=== PATIENT | male | born 1985 | race Caucasian/White ===

== ENCOUNTER 2017-09-07 17:30 | Observation (INO) | payer BC, MEDICAID, SELFPAY ==
[2017-09-07] VITALS (11 sets, daily range): BP systolic 155–192; BP diastolic 90–110; PULSE 85–115; RESP 12–18; TEMP 36.9–38.6; O2SAT 96–100; BMI 38.9; BMI 38.3
--- NOTE | 2017-09-07 17:50 | EKG12_ITS ---
Test Reason : PALPATATONS Blood Pressure : / mmHG Vent. Rate : 096 BPM Atrial Rate : 096 BPM P-R Int : 156 ms QRS Dur : 120 ms QT Int : 366 ms P-R-T Axes : 039 -31 022 degrees QTc Int : 462 ms Normal sinus rhythm Left axis deviation Left ventricular hypertrophy with QRS widening Abnormal ECG Confirmed by REESE SALAZAR, AUDREY ([id number]), graphics editor JASMIN ALEXANDER ([id number]) on 09/10/2017 1:32:00 PM Referred By: ANA Confirmed By:AUDREY LEIGH MD
[2017-09-07] MEDS: 0.9% Normal Saline 1,000 ML 1000 ML IV (18:03)
[2017-09-07 18:04] LABS: Absolute Neutrophil Count 9.4 X10^3/uL (2.0-7.7); Basophil# 0.02 X10^3/uL; Basophil% 0.2 % (0-1); Eosinophil# 0.11 X10^3/uL; Eosinophils% 0.9 % (0-5); Hematocrit 43.2 % (40-54); Hemoglobin 15.1 g/dl (13.0-16.5); Lymphocyte % 14.3 % (19-41); Mean Corpuscular Hgb 31.1 pg (27.0-32.0); Mean Corpuscular Volume 89.1 fL (80-94); Mean Platelet Vol. 9.7 fl (6.2-12.0); Monocyte# 1.19 X10^3/uL; Monocyte% 9.5 % (0-10); Neutrophil # 9.38 X10^3/uL (2.7-7.7); Neutrophil % 74.4 % (47-70); Platelet Count 321 K/mm3 (150-450); RBC Distribution Width CV 12.5 % (11.6-14.6); RBC Distribution Width SD 40.4 fl (35.1-43.9); Red Blood Count 4.85 M/mm3 (4.6-6.2); White Blood Count 12.6 K/mm3 (4.4-11.0)
[2017-09-07 18:05] LABS: POSITIVE COUNT NO; POSITIVE DIFFERENTIAL NO; POSITIVE MORPHOLOGY NO
--- NOTE | 2017-09-07 18:10 | RAD_ITS ---
STUDY: X-RAY CHEST REASON FOR EXAM: Male, 32 years old. Chest pain. TECHNIQUE: PA and lateral views of the chest. COMPARISON: None. FINDINGS: The lungs are clear and expanded. There is no demonstrated pleural abnormality. Normal size heart. Normal mediastinum and lavon. Normal visualized pulmonary arteries. Normal visualized aortic arch and descending thoracic aorta. There are minimal degenerative changes of the lower thoracic spine. Shallow, well corticated invaginations of the posterior inferior T9 and T10 vertebral endplates consistent with benign Schmorl's nodes. Normal visualized ribs, clavicles, and shoulders. There is no demonstrated abnormality of the visualized soft tissue structures of the upper abdomen. RAD/Chest PA and Lateral IMPRESSION: No acute cardiopulmonary disease. Electronically Signed: Tae Cooper MD at 18:48 EDT , Service support ,
[2017-09-07 18:14] LABS: D-Dimer Quantitative (DVT/PE) 0.27 FEU/ug/m (0.27-0.49)
[2017-09-07 18:33] LABS: Anion Gap 7 (5-15); BUN 12 mg/dL (7-18); BUN/Creat Ratio 12.6 RATIO (10-20); Calcium,Total 8.5 mg/dL (8.5-10.1); Chloride 100 mmol/L (98-107); Creatinine, Serum 0.96 mg/dL (0.70-1.30); EST Glomerular Filtration Rate 98 mL/min (>60); Est Glom Filt Rate - Afr Amer 119 mL/min (>60); Estimated Creatinine Clearance 119.84 ml/min; Glucose 82 mg/dL (74-106); Potassium 3.6 mmol/L (3.5-5.1); Sodium Level 135 mmol/L (136-145); Thyroid Stim Hormone (TSH) 3.97 uIU/mL (0.358-3.74)
--- NOTE | 2017-09-07 18:59 | ED.VISSUMM ---
- ER Visit Summary Date of Service: 09/07/17 Chief Complaint: Palpitations and dizziness History of Present Illness: The patient is a 32 M presenting for evaluation secondary to palpitations and dizziness. Patient states that today he had a sudden onset of feeling as if his heart was beating out of his chest and lightheadedness. Patient states that he felt as if he was going to pass out every time he stood up. He states it was associated with some nausea and shortness of breath and a generalized feeling of fatigue. Patient denies that there was any sort of chest pain associated with this. Patient does state that he had a cough last week and a mild upper respiratory infection that seems to have since basically resolved. He also reports that about a month ago he had a superficial soft tissue lesion removed from his abdomen that did not require any sort of general anesthesia. Denies any DVT or PE risk factors. Denies any prior similar symptoms. Patient states that he currently has a pending appointment for for workup of untreated hypertension. Physical Examination: Vital signs are within normal limits, patient is afebrile. General: Patient is well-nourished well-developed and in no acute distress. Head: Normocephalic, atraumatic Eyes: Pupils equal round and reactive bilaterally, extra occular motion intact bialterally ENT: Moist mucous membranes Neck: Supple, no lymphadenopathy, no JVD, no meningismus, normal thyroid to palpation CVS: Heart regular rate and rhythm, no murmurs, rubs or gallops, normal S1 and S2, radial pulses 2+ bilaterally Resp: Respirations nondistressed, lung sounds clear bilaterally Abdomen: Soft, nontender, nondistended, no palpable masses, normal bowel sounds Back: Nontender Extremities: Nontender, atraumatic, active full range of motion, no peripheral edema Skin: warm, no rashes, no petechia Neuro: Alert and oriented x 4, CN 2-12 intact, no lateralizing neurological defecits Psyc: Normal affect Test Results: EKG shows LVH with a sinus rate [address] segments normal T waves no evidence of right ventricular strain. LVH appears new from a prior EKG. Laboratory workup is unremarkable except for leukocytosis of 12 mildly elevated TSH and a indeterminate troponin of 0.06. D-dimer found to be negative. Emergency Department Course and Treatment: Patient presented secondary to dizziness palpitations in the setting of uncontrolled hypertension. He was worked up for possible cardiac abnormality versus blood clot versus thyroid. Workup as noted above ended up showing a indeterminate troponin. Patient was administered a liter normal saline and lisinopril in the ER but repeat evaluation showed that he was continuing to have these sensations. I believe that he requires observation admission at this point due to his indeterminate troponin, uncontrolled hypertension, and general risk factors. I discussed this with Dr. Trujillo Disposition: Admission Impression: 1. Presyncope 2. Elevated troponin 3. Hypertension This note was generated with [employer] dictation software. It may contain incorrect words, spelling, and punctuation that were not noted in review of the chart prior to signing ED Disposition - Plan for ED Patient: Chief Complaint: Palpitations Referrals: Care Physician,No Primary [Primary Care Provider] -
[2017-09-07] MEDS: Lisinopril 5 MG Tablet PO (19:06)
--- NOTE | 2017-09-07 19:20 | HP.PCM_ITS ---
History of Present Illness Date of Admission: 09/07/17 Chief Complaint: Dizziness, palpitation. The patient is a 32 year old M with no significant past medical history presented to the emergency room because of dizziness and palpitation. His symptoms started today with mainly dizziness and lightheadedness, constant, aggravated by standing up, associated with dizzy spells, headache and lightheadedness and without relieving factors. He mentioned he has been feeling that his heart is beating fast and strong since today morning. He denies syncope or presyncope. He reported mild chest pain which is described as discomfort or pressure, mild, intermittent, not radiating and associated with palpitation as well sometimes. His mentioned that lately, his blood pressure has been elevated. He had a lipoma surgery 1 month ago from his abdomen and at that time, his blood pressure was high as well. He mentioned that his blood pressure has been in the 160 systolic. In the emergency room, his initial blood pressure was 155/110 and second reading was 192/90. He was afebrile, tachycardic and pulse ox was 97%. His routine blood work was remarkable for mild leukocytosis, otherwise normal. Troponin was 0.06 which is at the cutoff range for normal level. His TSH was 3.97 which is slightly above reference range. Chest x-ray showed no acute findings. EKG revealed normal sinus rhythm with findings consistent with left axis deviation, no acute ischemic findings. He is being admitted for hypertensive urgency, palpitation and atypical chest pain/discomfort. Past Medical History Allergies shellfish derived Allergy (Verified 09/07/17 17:33) Unknown Home Medications: Ambulatory Orders Medication Instructions Recorded NK [NK] 09/07/17 Surgical History: tonsillectomy Psychiatric History: No pertinent psych hx Lives: Spouse/ Significant Other Smoking Status: Former smoker Alcohol: None Drugs: None - *Family History Maternal History Items: No pertinent history Paternal History Items: No pertinent history Review of Systems Constitutional: Denies: Anorexia, Chills, Fever, Weakness Eyes: Denies: Blurred vision, Double vision, Drainage, Redness HEENT: Denies: Difficulty Hearing, Ear Pain, Eye Pain, Nasal Congestion, Sore Throat Cardiovascular: Reports: Chest Pressure, Palpitations. Denies: Chest Pain, Heaviness, Light Headedness, Orthopnea, Paroxysmal Noc. Dyspnea, Syncope Respiratory: Reports: Shortness of Breath. Denies: Cough, Sputum production Gastrointestinal: Denies: Abdominal Pain, Constipation, Diarrhea, Nausea, Vomiting Genitourinary: Denies: Dysuria, Frequency Musculoskeletal: Denies: Arm Pain, Back Pain, Foot Pain Skin: Denies: Dryness, Rash Neurological: Denies: Balance problems, Blurred vision, Double vision, Change in Speech, Slurred speech, Focal weakness, Headaches Psychiatric: Reports: Anxiety. Denies: Depression Endocrine: Denies: Change in Body Habitus, Polydipsia VTE Information - Inpt Only VTE Present on Admission: No VTE Mechan Device Prophylaxis: None VTE Pharm Prophylaxis ordered?: No - Physical Exam General: Alert, Oriented x3, Cooperative, - - Anxious. HEENT: Atraumatic, PERRLA, EOMI Oral: Moist Mucosa, No Gingival or Mucosal Lesions/ Ulcerations Neck: Supple, No JVD, Negative Carotid Bruits, Trachea Midline, Thyroid Normal Size and Texture Lungs: Clear to auscultation, No rhonchi, No wheeze, No rales, Diminished Cardiovascular: Regular rate, Regular Rhythm, Normal S1, Normal S2, PMI Normal, Tachycardic Abdomen: Bowel Sounds Present, Soft, Non Tender, Non-Distended, No Hepato- splenomegaly Extremities: No clubbing, No cyanosis, No edema Skin: No rashes, No breakdown Lymphatic: No Cervical, Supraclavicular, or Inguinal Adenopathy Neurological: Cranial nerves II-XII grossly intact, Motor Exam 5/5 strength throughout Psych/Mental Status: Normal Affect, Anxious, Alert and oriented to time, place, person, mood and affect Vital Signs Temp Pulse Resp BP Pulse Ox 99.7 F H 95 12 184/104 H 99 09/07/17 17:30 09/07/17 19:06 09/07/17 19:06 09/07/17 19:06 09/07/17 19:06 Oxygen Delivery Method Room Air Laboratory Tests 3 09/07/17 09/07/17 09/07/17 Range/Units 17:45 17:45 17:45 WBC 12.6 H (4.4-11.0) K/mm3 RBC 4.85 (4.6-6.2) M/mm3 Hgb 15.1 (13.0-16.5) g/dl Hct 43.2 (40-54) % MCV 89.1 (80-94) fL MCH 31.1 (27.0-32.0) pg MCHC 35.0 (32-36) g/gl RDW 12.5 (11.6-14.6) % RDW Differential 40.4 (35.1-43.9) fl Plt Count 321 (150-450) K/mm3 MPV 9.7 (6.2-12.0) fl Immature Gran % (Auto) 0.700 (0.0-0.9) % Neut % (Auto) 74.4 H (47-70) % Lymph % (Auto) 14.3 L (19-41) % Rabun % (Auto) 9.5 (0-10) % Eos % (Auto) 0.9 (0-5) % Baso % (Auto) 0.2 (0-1) % Absolute Neuts (auto) 9.4 H (2.0-7.7) X10^3/uL Absolute Lymphs (auto) 1.80 (0.83-4.51) X10^3/ul Total Counted Not Reportable D-Dimer Quant (PE/DVT) 0.27 (0.27-0.49) FEU/ug/m Sodium 135 L (136-145) mmol/L Potassium 3.6 (3.5-5.1) mmol/L Chloride 100 (98-107) mmol/L Carbon Dioxide 28.0 (21.0-32.0) mmol/L Anion Gap 7 (5-15) BUN 12 (7-18) mg/dL Creatinine 0.96 (0.70-1.30) mg/dL Estim Creat Clear Calc 119.84 ml/min Est GFR (MDRD) Af Amer 119 (>60) mL/min Est GFR (MDRD) Non-Af 98 (>60) mL/min BUN/Creatinine Ratio 12.6 (10-20) RATIO Glucose 82 (74-106) mg/dL Calcium 8.5 (8.5-10.1) mg/dL Troponin I 0.06 (<0.06) ng/mL TSH 3.97 H (0.358-3.74) uIU/mL Clinical Impression(s) from Imaging Studies Chest X-Ray 09/07/17 18:10 IMPRESSION: No acute cardiopulmonary disease. Electronically Signed: Tae Cooper MD at 18:48 EDT , Service support , Assessment/Plan This is a 32 years old male patient presented to the emergency room because of dizziness, palpitation and atypical chest discomfort or pressure and he is being admitted for hypertensive urgency and atypical chest pain/pressure. #1 hypertensive urgency: Maximum blood pressure in the ER was 192/90, patient was tachycardic, heart rate has been around 100. EKG revealed normal sinus rhythm with left axis deviation, no acute ischemic changes. Patient and his mentioned that his blood pressure has been elevated lately over the last month. Has been in the 160 systolic. He never been on medication for hypertension. Plan: Admit to PCU for observation, cardiac monitoring, serial cardiac enzymes, repeat EKG tomorrow morning, start lisinopril/HCTZ, IV hydralazine as needed. #2 palpitation: Heart rate has been on 100, sinus rhythm. EKG without acute ischemic changes. Patient looks anxious and restless. He mentioned that his daughter has a major surgery recently and she has a follow-up tomorrow. Routine blood work was unremarkable. TSH was 3.97 which is slightly above the reference range. He denies any symptoms suggestive of hypothyroidism. Plan: Free and total T4, free T3. #3 atypical chest pain/pressure: Patient mentioned that he had very little chest discomfort and he was slightly short of breath. This is can be attributed to high blood pressure. He has no risk factors for CAD. He is not aware of any family history of premature CAD. EKG without acute ischemic changes. First troponin is 0.06 which is just above the Range for normal level. Plan: Serial cardiac enzymes, repeat EKG tomorrow morning, stress test tomorrow morning if cardiac enzymes are negative. #4 DVT prophylaxis: Low risk patient, no prophylaxis indicated. This note was generated with [employer] software. It may contain incorrect words, spelling, and punctuation that were not noted in checking the note before signing. Code Visit OBSV E&M: 05831 Initial observation care L3
[2017-09-07 21:52] LABS: Free T3 3.3 pg/mL (2.18-3.98); T4 Free Direct 0.87 ng/dL (0.76-1.46); T4 Total, Thyroxin 8.2 ug/dL (4.5-12.1)
[2017-09-07] MEDS: Acetaminophen 325 MG Tablet 650 MG PO (22:40)
[2017-09-07] MEDS: HYDROcodone Bitartrate/Apap 5/325 Tablet PO (23:23)
[2017-09-08] VITALS (8 sets, daily range): BP systolic 121–144; BP diastolic 67–100; PULSE 79–141; RESP 16–20; TEMP 36.6–37.3; O2SAT 94–97
[2017-09-08 02:39] LABS: Absolute Lymphocyte Count 2.94 X10^3/ul (0.83-4.51); Absolute Neutrophil Count 8.5 X10^3/uL (2.0-7.7); Basophil# 0.03 X10^3/uL; Basophil% 0.2 % (0-1); Differential Indicated SCAN CRITERIA MET; Eosinophil# 0.14 X10^3/uL; Hematocrit 43.3 % (40-54); Hemoglobin 15.1 g/dl (13.0-16.5); Lymphocyte # 2.94 X10^3/ul (4.0); Lymphocyte % 21.7 % (19-41); Mean Corp Hgb Conc 34.9 g/gl (32-36); Mean Corpuscular Hgb 31.1 pg (27.0-32.0); Mean Corpuscular Volume 89.3 fL (80-94); Mean Platelet Vol. 9.6 fl (6.2-12.0); Monocyte# 1.86 X10^3/uL; Monocyte% 13.7 % (0-10); Neutrophil # 8.49 X10^3/uL (2.7-7.7); Neutrophil % 62.9 % (47-70); POSITIVE COUNT NO; POSITIVE DIFFERENTIAL YES; POSITIVE MORPHOLOGY NO; Platelet Count 307 K/mm3 (150-450); RBC Distribution Width CV 12.7 % (11.6-14.6); RBC Distribution Width SD 40.9 fl (35.1-43.9); Red Blood Count 4.85 M/mm3 (4.6-6.2); White Blood Count 13.5 K/mm3 (4.4-11.0)
[2017-09-08 03:03] LABS: Anion Gap 9 (5-15); BUN 10 mg/dL (7-18); BUN/Creat Ratio 11.7 RATIO (10-20); Calcium,Total 8.3 mg/dL (8.5-10.1); Chloride 102 mmol/L (98-107); Cholesterol 159 mg/dL (200); Creatinine, Serum 0.86 mg/dL (0.70-1.30); EST Glomerular Filtration Rate 111 mL/min (>60); Est Glom Filt Rate - Afr Amer 135 mL/min (>60); Estimated Creatinine Clearance 133.77 ml/min; Glucose 100 mg/dL (74-106); High Density Lipoprotein 25 mg/dL; Potassium 3.4 mmol/L (3.5-5.1); Sodium Level 136 mmol/L (136-145); Triglycerides 513 mg/dL
[2017-09-08 04:57] LABS: International Normalized Ratio 1.2; Prothrombin Time (Protime)PT. 14.8 SECONDS (11.7-14.9)
[2017-09-08 04:58] LABS: Partial Thromboplast Time 29.8 Seconds (24.1-36.2)
[2017-09-08] MEDS: Lisinopril 20 MG Tablet PO (05:39)
--- NOTE | 2017-09-08 05:55 | EKG12_ITS ---
Test Reason : AM EKG Blood Pressure : / mmHG Vent. Rate : 090 BPM Atrial Rate : 090 BPM P-R Int : 158 ms QRS Dur : 122 ms QT Int : 386 ms P-R-T Axes : 048 -22 020 degrees QTc Int : 472 ms Normal sinus rhythm Left ventricular hypertrophy with QRS widening Abnormal ECG When compared with ECG of 21-SEP-2011 23:27, No significant change was found Confirmed by REESE SALAZAR, AUDREY ([id number]), publishing editor JASMIN ALEXANDER ([id number]) on 09/10/2017 1:37:22 PM Referred By: DR HASSAN Confirmed By:AUDREY LEIGH MD
[2017-09-08] MEDS: Ipratropium/Albuterol Sulfate 3 ML AMPUL.NEB INHALATION (05:59)
--- NOTE | 2017-09-08 09:14 | STRESSREP ---
Stress Test Report Pharmacologic myocardial perfusion stress test. 32-year-old man with a history of chest pain. Stress protocol: Resting EKG demonstrates normal sinus rhythm with a rate of 81 bpm normal intervals and noted resting blood pressure 732/84 mmHg. 0.4 mg of regadenoson was infused per usual protocol followed by rapid intravenous saline flush injection. Continuous EKG monitoring was performed. The patient maintained sinus rhythm throughout the recording. At rest there were no ST or T-wave changes noted suggest abnormal flow reserve at peak infusion no ST or T-wave changes were noted suggest abnormal flow reserve. The maximum heart rate attained was 111 bpm which was 58% maximum predicted heart rate. Myocardial perfusion protocol. 14.8 mCi of technetium 99m sestamibi was injected at rest. 0.4 mg regadenoson was infused per usual protocol. Peak infusion 44.8 mCi of technetium 99m sestamibi was injected. Stress images were obtained stress and rest images were reconstructed and compared in the short axis vertical long and horizontal long axis. Gated images were also obtained. Perfusion SPECT analysis: Review of the stress images demonstrate normal uptake of tracer noted in all areas of the myocardium. The resting images similarly demonstrate normal uptake of tracer noted in all areas of the myocardium. No areas of reversibility are noted suggest ischemia no previous infarct is noted. Gated SPECT analysis: The gated ejection fraction is noted be 55%. Conclusion: Normal pharmacologic myocardial perfusion stress test. Preserved ejection fraction.
[2017-09-08] MEDS: HYDROCHLOROTHIAZIDE 12.5 MG CAPSULE PO (10:37)
--- NOTE | 2017-09-08 11:01 | PCM.DC ---
You will use the following diet at home:: Cardiac Your food should be the consistency of: Regular Allergies/Adverse Reactions: Allergies shellfish derived Allergy (Verified 09/07/17 17:33) Unknown imitation crab meat Allergy (Uncoded 09/07/17 19:38) throat swelling Medications to take at Discharge Atorvastatin Calcium [Lipitor] 40 mg PO QHS #90 tab 09/08/17 Hydrochlorothiazide 12.5 mg PO DAILY #90 cap 09/08/17 Lisinopril [Zestril] 20 mg PO DAILY #90 tab 09/08/17 The following prescriptions were given: Atorvastatin Calcium [Lipitor] 40 mg PO QHS #90 tab Hydrochlorothiazide 12.5 mg PO DAILY #90 cap Lisinopril [Zestril] 20 mg PO DAILY #90 tab Primary Care Physician: Care Physician,No Primary [Primary Care Provider] - Please follow up with your Primary Care Physician in: in 1-2 weeks Proposed Discharge Date: 09/08/17
--- NOTE | 2017-09-08 11:05 | PCM.DC.SUM ---
Discharge Date and Diagnosis - Problem List Patient Problems: Active and Suspected Problems High triglycerides (Acute) Hypertensive crisis (Acute) Date of Admission: 09/07/17 Date of Discharge: 09/08/17 - Primary Discharge Diagnosis Active and Suspected Problems High triglycerides (Acute) Hypertensive crisis (Acute) - Secondary Discharge Diagnosis Chronic Problems Obesity (BMI 35.0-39.9 without comorbidity) (Chronic) Hospital Course and Treatment Imaging Results: 09/08/17 05:55 Nuclear Stress Test - Chemical [NM] AM (NON MEDS) Clinical Impression(s) from Imaging Studies Chest X-Ray 09/07/17 18:10 IMPRESSION: No acute cardiopulmonary disease. Electronically Signed: Tae Cooper MD at 18:48 EDT , Service support , Summary of Care Provided: The patient is a 32 year old M with good health who presented with palpitations and dizziness patient was found to have markedly elevated blood pressure admitted to monitored bed for further management 1. Acute hypertensive crisis: Patient admitted to a monitored bed. Patient was placed on lisinopril and HCTZ with improvement in his blood pressure prescription was written on discharge 2. Atypical chest pain placed on a monitored bed as stated above did rule out ID with serial cardiac enzymes underwent a nuclear stress test which is negative for stress-induced ischemia 3. Morbid obesity with BMI of 38.4 weight loss advised 4. Hypertriglyceridemia patient was discharged on statins Discharge Diet: Low fat/ Low Cholesterol Home Medications: Medications to take at Discharge Atorvastatin Calcium [Lipitor] 40 mg PO QHS #90 tab 09/08/17 Hydrochlorothiazide 12.5 mg PO DAILY #90 cap 09/08/17 Lisinopril [Zestril] 20 mg PO DAILY #90 tab 09/08/17 Following Prescrptions Were Given to Patient: Atorvastatin Calcium [Lipitor] 40 mg PO QHS #90 tab Hydrochlorothiazide 12.5 mg PO DAILY #90 cap Lisinopril [Zestril] 20 mg PO DAILY #90 tab Primary Care Physician: Care Physician,No Primary [Primary Care Provider] - Please follow up with your Primary Care Physician in: in 1-2 weeks Disposition: Home Minutes spent on discharge:: 35 Patient Condition:: Stable Meaningful Use Info Meaningful Use Diagnoses (Choose all that apply): None applicable Code Visit OBSV E&M: 94716 Observation care discharge
--- NOTE | 2017-09-08 11:05 | CASEMGMT ---
RN CM given referral by Dr. Medina to assist patient with obtaining PCP. RN CM gave patient a list of area providers, and explained to check in-network provider. RN CM told patient to call to establish with preferred provider. Patient verbalizes understanding and gratitude for list. Hussain Ruiz BSN, RN-BC, CCM
== END 2017-09-08 11:02 | disposition home or self-care (01) ==
LOC: ED 18:10 → PCU 19:07
PROVIDERS: Admitting Provider Hospitalist; Emergency Provider Emergency Medicine; Visit Provider Internal Medicine
DX: I16.9 Hypertensive crisis, unspecified (principal); E66.01 Morbid (severe) obesity due to excess calories; Z68.38 Body mass index [BMI] 38.0-38.9, adult; Z71.3 Dietary counseling and surveillance; R07.89 Other chest pain; E78.1 Pure hyperglyceridemia; R55 Syncope and collapse; Z87.891 Personal history of nicotine dependence; I10 Essential (primary) hypertension
CPT/HCPCS: 36415; 71046; 78452; 80048; 80061; 84436; 84439; 84443; 84481; 84484; 85025; 85379; 85610; 85730; 93005; 93017; 94640; 96361; 96374; 99218; 99285; A9500; J7030; A4216; G0378; J2785

== ENCOUNTER 2018-01-19 09:13 | Emergency (ER) | payer BC, MEDICAID, SELFPAY ==
[2018-01-19 09:14] VITALS: BP 159/84; PULSE 103; RESP 16; TEMP 36.8; O2SAT 97; BMI 34.2
--- NOTE | 2018-01-19 09:45 | CT_ITS ---
STUDY: CT ABDOMEN AND PELVIS WITHOUT CONTRAST REASON FOR EXAM: Male, 32 years old. Back pain, nausea and vomiting RADIATION DOSAGE (If Supplied By Facility): CTDIvol = ( 14.75 ) mGy, DLP = ( 789.77 ) mGycm TECHNIQUE: Transaxial images were obtained from the dome of the diaphragm to the symphysis pubis without oral contrast, and without intravenous contrast. Sagittal and coronal images were reconstructed. Individualized dose optimization techniques were used for this CT. COMPARISON: None. FINDINGS: The visualized lung bases are unremarkable. The visualized portions of the heart are within normal limits. Normal liver. Normal gallbladder and extrahepatic biliary system. Normal spleen. Normal pancreas. Normal bilateral adrenal glands. Normal right kidney. Normal left kidney. Normal visualized stomach. Normal small intestine. Normal colon. There is non-visualization of the appendix. Normal abdominal aorta. Normal inferior vena cava. Normal retroperitoneum. Normal urinary bladder. There is a right-sided inguinal hernia containing adipose tissue. Normal osseous structures. CT/Abdomen/Pelvis without Cont IMPRESSION: No suspicious solid organ abnormality No CT evidence of an acute inflammatory process No free intraperitoneal fluid, air, or suspicious adenopathy Electronically Signed: Tae Santa MD at 10:38 EDT , Service support ,
--- NOTE | 2018-01-19 09:48 | ED.DCSUM_ITS ---
- ER Visit Summary Date of Service: 01/19/18 Chief Complaint: [Abdominal pain] History of Present Illness: The patient is a 32 M [since the emergency department with abdominal pain. He woke up with it this morning. It is in the left flank. He has had associated nausea and vomiting 2 episodes. He has had 4 episodes of watery stool. No urinary symptoms. He feels generally weak and ill. No fevers or chills. No other medical problems.] Physical Examination: [] WN WD NAD PERRL EOMI MMM NECK supple and nontender, no masses RRR no murmur rub or gallop, no peripheral edema, symmetric radial pulses CTAB no respiratory distress ABDOMEN is soft he has tender Barrow in the left mid abdomen, normal bowel sounds , no distension, no rebound or guarding No CVA tenderness SKIN is warm and dry no rashes Alert and Oriented x3, CN II-XII in tact, no motor or sensory deficits, gait normal No lymphadenopathy Test Results: [] Emergency Department Course and Treatment: [Patient was improved with Phenergan and morphine. He still had some left mid abdominal pain. CT of abdomen pelvis was unremarkable. T bili was 2.2. He did have a mild leukocytosis at 12. I did reevaluate him he has no right upper quadrant pain. Biliary tract and gallbladder system appear normal by CT. This time I am not sure why he has an elevated total bilirubin. I do think she can be discharged home. I gave him careful precautions for which to return including worsening pain and inability to tolerate p.o. or fever of 101 or higher. He will be given Bentyl and Phenergan at home.] Treatment Plan: [] Disposition: [Discharge] Impression: [1. Left mid abdominal pain 2. Nausea vomiting diarrhea] This note was generated with [employer] dictation software. It may contain incorrect words, spelling, and punctuation that were not noted in review of the chart prior to signing ED Disposition - Plan for ED Patient: Chief Complaint: Nausea/Vomiting/Diarrhea Referrals: Brandon Lovett PA [Primary Care Provider] -
[2018-01-19] MEDS: proMETHazine 25 MG/ML Syringe 12.5 MG IV (10:01)
[2018-01-19] MEDS: 0.9% Normal Saline 1,000 ML 1000 ML IV (10:01)
[2018-01-19] MEDS: Morphine 4 MG/ML Syringe IV (10:01)
[2018-01-19 10:10] LABS: Bacteria 0 SEEN /hpf (None Seen); Mucous, Urine 0 SEEN /hpf (<or=2+); Red Blood Cells-Urine 0 SEEN /hpf (0-5); Squamous Epithelial Cells - UA 0 SEEN /hpf (0-5); White Blood Cells 0 SEEN /hpf (0-5)
[2018-01-19 10:16] LABS: Color, Urine Yellow (Yellow); Glucose, Dipstick Normal (Normal); Ketone-Dipstick Negative (Negative); Leukocyte Esterase-Dipstick Negative /ul (Negative); Nitrite-Dipstick Negative (Negative); Occult Blood-Urine 10 /ul (Negative); Protein-Dipstick Negative (Negative); Specific Gravity, Urine 1.005 (1.002-1.030); Urine Bilirubin Dipstick Negative (Negative); Urine Clarity Clear (Clear); Urine Urobilinogen Normal (Normal); Urine pH 6.5 (5.0 - 8.0)
[2018-01-19 10:18] LABS: Absolute Lymphocyte Count 1.53 X10^3/ul (0.83-4.51); Absolute Neutrophil Count 8.9 X10^3/uL (2.0-7.7); Basophil# 0.03 X10^3/uL; Basophil% 0.3 % (0-1); Eosinophil# 0.12 X10^3/uL; Hematocrit 43.5 % (40-54); Hemoglobin 15.1 g/dl (13.0-16.5); Lymphocyte # 1.53 X10^3/ul (4.0); Lymphocyte % 12.8 % (19-41); Mean Corp Hgb Conc 34.7 g/gl (32-36); Mean Corpuscular Hgb 31.3 pg (27.0-32.0); Mean Corpuscular Volume 90.2 fL (80-94); Mean Platelet Vol. 9.7 fl (6.2-12.0); Monocyte% 11.7 % (0-10); Neutrophil # 8.86 X10^3/uL (2.7-7.7); Neutrophil % 73.9 % (47-70); Platelet Count 322 K/mm3 (150-450); RBC Distribution Width CV 12.5 % (11.6-14.6); RBC Distribution Width SD 40.9 fl (35.1-43.9); Red Blood Count 4.82 M/mm3 (4.6-6.2)
[2018-01-19 10:19] LABS: POSITIVE COUNT NO; POSITIVE DIFFERENTIAL NO; POSITIVE MORPHOLOGY NO
[2018-01-19 10:27] LABS: AST(SGOT) 19 U/L (15-37); Alanine Aminotransfer ALT/SGPT 42 U/L (16-61); Albumin, Serum 4.2 g/dL (3.2-5.0); Alkaline Phosphatase 55 U/L (45-117); Anion Gap 6 (5-15); BUN 16 mg/dL (7-18); BUN/Creat Ratio 15.8 RATIO (10-20); Calcium,Total 9.2 mg/dL (8.5-10.1); Chloride 103 mmol/L (98-107); Creatinine, Serum 1.01 mg/dL (0.70-1.30); EST Glomerular Filtration Rate 92 mL/min (>60); Est Glom Filt Rate - Afr Amer 111 mL/min (>60); Globulin 4.1 g/dL (2.2-4.2); Glucose 75 mg/dL (74-106); Lipase 102 U/L (73-393); Protein, Total 8.3 g/dL (6.4-8.2); Sodium Level 138 mmol/L (136-145)
--- NOTE | 2018-01-19 11:05 | ED.DEP ---
ED Disposition - Plan for ED Patient: Chief Complaint: Nausea/Vomiting/Diarrhea Instructions: ED Vomiting Diarrhea Nonspecific Ad, ED Abdominal Pain Unkn Cause Prescriptions: Ondansetron [Zofran Odt] 4 mg PO Q8H PRN PRN #10 tablet PRN Reason: Nausea Dicyclomine HCl [Bentyl] 20 mg PO TIDAC PRN #20 capsule PRN Reason: Pain Referrals: Brandon Lovett PA [Primary Care Provider] - 2 Days
[2018-01-19 11:17] VITALS: BP 122/68; PULSE 81; RESP 18; O2SAT 99
--- NOTE | 2018-01-19 11:17 | ED.RN ---
advised pt he had to find a ride to be able to go home. pt was in process of calling family to try to find a ride.
--- NOTE | 2018-01-19 12:16 | ED.RN ---
WENT BACK INTO ROOM TO SEE IF PT HAD FOUND A RIDE, AND PT AND BELONGINGS WERE GONE.
== END 2018-01-19 12:17 | disposition home or self-care (01) ==
PROVIDERS: Emergency Provider Emergency Medicine; Family Provider Physician Assistant; PCP Physician Assistant
DX: R10.9 Unspecified abdominal pain (principal); R11.2 Nausea with vomiting, unspecified; R19.7 Diarrhea, unspecified; Z79.899 Other long term (current) drug therapy
CPT/HCPCS: 74176; 80053; 81001; 83690; 85025; 96361; 96374; 96375; 99283; A4216

== ENCOUNTER 2018-03-28 11:54 | Emergency (ER) | payer BC, MEDICAID, SELFPAY ==
[2018-03-28 11:56] VITALS: BP 128/86; PULSE 66; RESP 18; TEMP 36.4; O2SAT 100; BMI 34.9
[2018-03-28 11:59] VITALS: BP 128/86; PULSE 66; RESP 18; O2SAT 100
--- NOTE | 2018-03-28 12:03 | EKG12_ITS ---
Test Reason : DIZZINESS Blood Pressure : / mmHG Vent. Rate : 066 BPM Atrial Rate : 066 BPM P-R Int : 180 ms QRS Dur : 128 ms QT Int : 400 ms P-R-T Axes : 053 000 036 degrees QTc Int : 419 ms Normal sinus rhythm Non-specific intra-ventricular conduction block Abnormal ECG Confirmed by REESE SALAZAR, AUDREY ([id number]), editor city JASMIN ALEXANDER ([id number]) on 04/04/2018 3:21:29 PM Referred By: SAUNDRA
--- NOTE | 2018-03-28 12:07 | ED.DCSUM_ITS ---
- ER Visit Summary Date of Service: 03/28/18 Chief Complaint: Dizziness and lightheadedness History of Present Illness: The patient is a 32 M who was at work today and felt dizzy and lightheaded. He states my head was spinning. He denies any chest pain or headache. He does feel nauseous and did vomit on the way N. This happened one episode previously and had a negative stress test after he was admitted for this. He states that the last time when he would sit down it would feel better but now any position does not make it better. Physical Examination: Vital signs reviewed. HEENT exam unremarkable. He does have bilateral nystagmus on eye movement. Heart is regular rate and rhythm without murmurs. Lungs are clear to auscultation. Abdomen is soft and nontender. Extremities reveal no edema. Skin exam normal. Neurologic exam normal. Test Results: EKG is normal sinus rhythm with a rate of 66. No ST changes. Chest x-ray normal. Laboratory studies are normal. Troponin is 0.022 Emergency Department Course and Treatment: Patient was treated with saline, Antivert and Zofran. He states he felt a little bit better but not back to baseline. He was then given oral Valium and feels better. I feel this is likely secondary to vertigo. He had a normal stress test earlier this year. I do not feel that this is cardiac. Patient will be treated with Antivert at home. He will increase hydration and will follow up with his primary care physician. Treatment Plan: [] Disposition: Discharge Impression: Vertigo This note was generated with [employer] dictation software. It may contain incorrect words, spelling, and punctuation that were not noted in review of the chart prior to signing ED Disposition - Plan for ED Patient: Chief Complaint: Dizziness Referrals: Brandon Lovett PA [Primary Care Provider] -
[2018-03-28] MEDS: Ondansetron 4 MG/2 ML Vial IV (12:18)
[2018-03-28] MEDS: 0.9% Normal Saline 1,000 ML 1000 ML IV (12:18)
[2018-03-28] MEDS: Aspirin 81 MG TAB.CHEW 324 MG PO (12:19)
[2018-03-28] MEDS: Meclizine HCl 25 MG Tablet PO (12:19)
[2018-03-28 12:21] VITALS: O2SAT 99
--- NOTE | 2018-03-28 12:22 | RAD_ITS ---
STUDY: X-RAY CHEST REASON FOR EXAM: Male, 32 years old. Chest pain, dizziness and diaphoresis. Shortness of breath. TECHNIQUE: Single AP portable view of the chest. COMPARISON: Comparison is made with prior study dated September 07, 2017. FINDINGS: EKG electrodes are seen. The lungs are clear and expanded. Scattered calcified granulomas. There is no demonstrated pleural abnormality. Normal size heart. Normal mediastinum and lavon. Normal visualized pulmonary arteries. Normal visualized aortic arch and descending thoracic aorta. There are degenerative changes of the visualized thoracic spine. Normal visualized ribs, clavicles, and shoulders. There is no demonstrated abnormality of the visualized soft tissue structures of the upper abdomen. RAD/Chest 1 View (Portable) IMPRESSION: No acute abnormality is seen. Electronically Signed: Gaurav Lau MD at 12:44 EDT Tel [phone], Service support ,
[2018-03-28 12:35] LABS: Absolute Lymphocyte Count 2.74 X10^3/ul (0.83-4.51); Absolute Neutrophil Count 6.2 X10^3/uL (2.0-7.7); Basophil# 0.03 X10^3/uL; Basophil% 0.3 % (0-1); Hematocrit 42.6 % (40-54); Hemoglobin 14.6 g/dl (13.0-16.5); Lymphocyte # 2.74 X10^3/ul (4.0); Lymphocyte % 27.1 % (19-41); Mean Corp Hgb Conc 34.3 g/gl (32-36); Mean Corpuscular Hgb 30.4 pg (27.0-32.0); Mean Corpuscular Volume 88.8 fL (80-94); Mean Platelet Vol. 9.8 fl (6.2-12.0); Monocyte# 1.08 X10^3/uL; Monocyte% 10.7 % (0-10); Neutrophil # 6.16 X10^3/uL (2.7-7.7); Neutrophil % 60.8 % (47-70); Platelet Count 311 K/mm3 (150-450); RBC Distribution Width CV 12.3 % (11.6-14.6); RBC Distribution Width SD 39.4 fl (35.1-43.9); White Blood Count 10.1 K/mm3 (4.4-11.0)
[2018-03-28 12:36] LABS: POSITIVE COUNT NO; POSITIVE DIFFERENTIAL NO; POSITIVE MORPHOLOGY NO
--- NOTE | 2018-03-28 12:36 | ED.RN ---
WHILE IN PATIENT ROOM PATIENT HEART RATE DROPPED TO MID 40'S PATIENT COMPLAINED OF WORSENING DIZZINESS. DR. CRUZ NOTIFIED.
[2018-03-28 12:59] LABS: Anion Gap 10 (5-15); BUN 21 mg/dL (7-18); BUN/Creat Ratio 21.3 RATIO (10-20); Calcium,Total 9.5 mg/dL (8.5-10.1); Chloride 103 mmol/L (98-107); Creatinine, Serum 0.98 mg/dL (0.70-1.30); EST Glomerular Filtration Rate 95 mL/min (>60); Est Glom Filt Rate - Afr Amer 114 mL/min (>60); Estimated Creatinine Clearance 117.39 ml/min; Glucose 99 mg/dL (74-106); Potassium 3.5 mmol/L (3.5-5.1); Sodium Level 136 mmol/L (136-145)
[2018-03-28] MEDS: diazePAM 5 MG Tablet 2.5 MG PO (13:56)
[2018-03-28 13:59] VITALS: BP 138/86; PULSE 76; RESP 14; O2SAT 97
--- NOTE | 2018-03-28 14:19 | ED.DEP ---
ED Disposition - Plan for ED Patient: Disposition: Home or Assisted Living Chief Complaint: Dizziness Instructions: ED BPV Vertigo Prescriptions: Meclizine HCl [Antivert] 25 mg PO 4X/DAY PRN PRN #20 tab PRN Reason: Dizziness Referrals: Brandon Lovett PA [Primary Care Provider] -
[2018-03-28 14:27] VITALS: BP 130/85; PULSE 60; RESP 16; O2SAT 98
== END 2018-03-28 14:38 | disposition home or self-care (01) ==
PROVIDERS: Emergency Provider Emergency Medicine; Family Provider Physician Assistant; PCP Physician Assistant
DX: R42 Dizziness and giddiness (principal); R11.2 Nausea with vomiting, unspecified; I10 Essential (primary) hypertension; Z79.899 Other long term (current) drug therapy
CPT/HCPCS: 71045; 80048; 84484; 85025; 93005; 96361; 96374; 99284; J7030; J2405

== ENCOUNTER 2023-04-27 16:00 | Emergency (ER) | payer MEDICAID, SELFPAY ==
[2023-04-27 16:03] VITALS: BP 177/108; PULSE 85; RESP 18; TEMP 37; O2SAT 99; BMI 36.4
--- NOTE | 2023-04-27 16:26 | EX.ED.DYSGE1 ---
HPI History of Present Illness Chief Complaint: Allergic Reaction Narrative Narrative: 37-year-old male presenting for concern of allergic reaction. Patient states the only allergy he knows that he has is what he believes is a shellfish allergy. He states he was previously told this because he ate some imitation crab meat and had an allergic reaction. He states that he can eat in small amounts but if he eats a whole pack of imitation crab meat he will then get an allergic reaction which she describes as throat closure. Last night he states that he was making pork chops with a new version of a shake and bake type of food for his pork chops and states that this caused him to feel acutely short of breath. He states that he did not have a rash. He states that his 1 came home and given an EpiPen and this helped. He did not come to the ER last night because he had to stay home with the children's and back to work. He states he still has some throat tightness and feels like he has a grapefruit in his throat. Patient states that he is not having trouble swallowing or tolerating secretions. He has not had any rashes. Denies abdominal pain. No fevers or chills. [facility] Medical History Allergies Home Medications atorvastatin 40 mg tablet 40 mg PO QHS #90 tabs 09/08/17 [Rx Last Taken Unknown] hydrochlorothiazide 12.5 mg capsule 12.5 mg PO DAILY #90 caps 09/08/17 [Rx Last Taken Unknown] lisinopril 20 mg tablet 20 mg PO DAILY #90 tabs 09/08/17 [Rx Last Taken Unknown] meclizine 25 mg tablet 25 mg PO 4X/DAY PRN PRN Dizziness #20 tabs 03/28/18 [Rx Last Taken Unknown] diphenhydramine HCl 25 mg capsule (Benadryl) 25 mg PO TID PRN allergic reaction #20 caps 04/27/23 [Rx Last Taken Unknown] epinephrine 0.3 mg/0.3 mL injection, auto-injector (EpiPen 2-[place]) 0.3 mg (0.3 mL) IM Q4H PRN anaphylaxis #2 ea 04/27/23 [Rx Last Taken Unknown] prednisone 10 mg tablet 10 mg PO DAILY #14 tabs 04/27/23 [Rx Last Taken Unknown] Allergy/AdvReac Type Severity Reaction Status Date / Time crab Allergy Other Verified 04/27/23 16:03 shellfish derived Allergy Unknown Verified 04/27/23 16:03 Social History Smoking Status: Never smoker ROS ROS ED Constitutional Constitutional ED: Denies chills, fever(s) or sweats Eyes Eyes: Denies blurry vision or change in vision ENT ENT ED: Reports sore throat and other Details: Throat tightness ; Denies ear pain Cardiovascular Cardiovascular: Denies chest pain, palpitations or racing heartbeat Respiratory/Chest Respiratory/Chest: Reports dyspnea; Denies cough or sputum Gastrointestinal Gastrointestinal: Denies abdominal pain, constipation, diarrhea, nausea or vomiting Genitourinary Genitourinary ED: Denies dysuria, hematuria or urinary frequency Musculoskeletal Musculoskeletal: Denies arthralgias, myalgias or neck pain Integumentary Denies abscess, Abrasions or rash Neurologic Neurologic: Denies headache(s), paresthesias or weakness Psychiatric Psychiatric: Denies anxiety, depression, suicidal ideation or suicidal thoughts Endocrine Endocrinology: Denies polydipsia or polyuria EXAM Physical Exam Const Vital Signs: 04/27/23 16:03 Temperature 98.6 F Temperature Source Temporal Pulse Rate 85 Respiratory Rate 18 Blood Pressure 177/108 H Blood Pressure Mean 131 Pulse Ox 99 Oxygen Delivery Method Room Air Positive well nourished General Appearance ED: NAD; Negative for pallor HEENT Reports moist mucous membranes Eyes PERRL and EOMs intact bilaterally Neck no lymphadenopathy Neck Narrative: No stridor Chest Wall inspection of chest normal Resp normal respiratory effort and clear to auscultation bilaterally Auscultation: Negative for rales, rhonchi or wheezes Cardio regular rate and regular rhythm GI normal to inspection, nondistended, normoactive bowel sounds Back/Spine no CVA tenderness Extremity normal to inspection General Extremety ED: Negative for edema or tenderness General Extremity: Negative for edema Neuro CN's II-XII intact bilaterally Sensorium / Orientation: alert Psych mental status grossly normal Skin no rashes or lesions noted and no wounds General Skin Exam: elasticity normal; Negative for jaundice or pallor MDM MDM MDM Narrative Medical decision making narrative: 37-year-old male presenting with concern for allergic reaction. Is not anaphylaxis. No stridor on exam. Lungs are clear to auscultation. Patient was given Benadryl, Pepcid, Solu-Medrol and feels much better on reexamination at 1650. Patient is monitored until 1800 and feels a lot better at this point. I obtained a soft tissue neck x-ray on my interpretation this shows no acute process. Patient be given a prednisone taper, EpiPen, Benadryl for home. Return precautions were discussed. Impression: 1. Allergic reaction Lab Data Attestation: I reviewed the patient's lab results. Radiography Diagnostic Testing: Clinical Impression(s) from Imaging Studies Soft Tissue Neck X-Ray 04/27/23 16:50 IMPRESSION: Normal x-ray soft tissue neck. Electronically Signed: Efraín Pollard MD at 17:20 EDT , Discharge Plan Triage Chief Complaint: Allergic Reaction ED Provider: Santiago Puente Dx/Rx/DC Orders Instructions: ED General Allergic Reactions Prescriptions: New epinephrine [EpiPen 2-[place]] 0.3 mg/0.3 mL auto-injector 0.3 mg IM Q4H PRN (Reason: anaphylaxis) Qty: 2 0RF prednisone 10 mg tablet 10 mg PO DAILY Qty: 14 0RF Rx Instructions: 4 tabs p.o. x2 days, then 2 tabs p.o. x2 days, then 1 tab p.o. x2 days diphenhydramine HCl [Benadryl] 25 mg capsule 25 mg PO TID PRN (Reason: allergic reaction) Qty: 20 0RF No Action lisinopril 20 MG tablet 20 mg PO DAILY Qty: 90 0RF hydrochlorothiazide 12.5 MG capsule 12.5 mg PO DAILY Qty: 90 0RF atorvastatin 40 MG tablet 40 mg PO QHS Qty: 90 0RF meclizine 25 MG tablet 25 mg PO 4X/DAY PRN PRN (Reason: Dizziness) Qty: 20 0RF Primary Care Provider: Brandon Lovett Referrals: Brandon Lovett PA [Primary Care Provider] - Disposition Disposition: Home, Self Care
[2023-04-27] MEDS: Famotidine 200 MG/20 ML MDV 20 MG in 0.9% Normal Saline (Pres. free 8 ML 300 MG IV (16:41)
[2023-04-27] MEDS: MethylPREDNISolone 125 MG/2 ML Vial IV (16:42)
[2023-04-27] MEDS: DiphenhydrAMINE 50 MG/ML Syringe 25 MG IV (16:42)
--- NOTE | 2023-04-27 16:50 | RAD_ITS ---
STUDY: X-RAY - SOFT TISSUE NECK REASON FOR EXAM: Male, 37 years old. throat tightness TECHNIQUE: 2 view(s) of the neck were obtained. COMPARISON: None. FINDINGS: Normal visualized nasopharynx, oropharynx, hypopharynx. Normal epiglottis. Normal visualized subglottic tracheal air column. Normal prevertebral soft tissue structures. Normal visualized osseous structures. The soft tissue structures are unremarkable. RAD/Neck for Soft Tissue IMPRESSION: Normal x-ray soft tissue neck. Electronically Signed: Efraín Pollard MD at 17:20 EDT ,
[2023-04-27 18:21] VITALS: BP 166/99; PULSE 82; RESP 18; O2SAT 98
== END 2023-04-27 18:22 | disposition home or self-care (01) ==
PROVIDERS: Emergency Provider Student in an Organized Health Care Education/Training Program; PCP Physician Assistant; Visit Provider Student in an Organized Health Care Education/Training Program
DX: T78.40XA Allergy, unspecified, initial encounter (principal); X58.XXXA Exposure to other specified factors, initial encounter
CPT/HCPCS: 70360; 96365; 96366; 96375; 99283; A4216; J3490

== ENCOUNTER 2023-05-07 06:49 | Emergency (ER) | payer OTHER, SELFPAY ==
--- NOTE | 2023-05-07 06:51 | RAD_ITS ---
INDICATION: injury EXAMINATION/TECHNIQUE: X-RAY - LEFT XR Foot Min 3 Views 3 VIEWS COMPARISON: No relevant prior comparison study available FINDINGS: SOFT TISSUES: Subcutaneous soft tissue swelling at the dorsal aspect of the foot suggesting hematoma. No radiopaque foreign body. BONES/JOINTS: No acute fracture or subluxation.. Normal alignment. Preservation of the joint space.. No sclerotic or destructive changes observed. RAD/Foot min 3 Views IMPRESSION: Subcutaneous soft tissue swelling at the dorsal aspect of the foot suggesting hematoma. There is no evidence of fracture. Electronically Signed: Devan Hernandez MD at 8:05 EST ,
[2023-05-07 06:52] VITALS: BP 165/98; PULSE 85; RESP 18; TEMP 36.6; O2SAT 98; BMI 37.0
--- NOTE | 2023-05-07 07:26 | ED.VIS.LOWEX ---
HPI History of Present Illness Chief Complaint: Lower Extremity Injury Informant: patient Narrative Narrative: Patient presents just after a work-related injury. He states a very heavy piece of steel fell onto his left midfoot dorsally, proximal to the steel toe and the boots that he was wearing at the time. States it is severe pain, he cannot put any weight on it since the injury. He describes this big plate of steel as half inch-1 inch thick or so, 4 foot x 2 foot. When asked how much he weighs, he states probably somewhere between 50 and 100 pounds. [facility] Medical History Allergies Hypertension Home Medications epinephrine 0.3 mg/0.3 mL injection, auto-injector (EpiPen 2-[place]) 0.3 mg (0.3 mL) IM Q4H PRN anaphylaxis #2 ea 04/27/23 [Rx Last Taken Unknown] amlodipine 10 mg tablet 10 mg PO DAILY 05/07/23 [History Last Taken Unknown] oxycodone-acetaminophen 5 mg-325 mg tablet 1 tab PO Q4H PRN Pain 2 days #10 TABLETS 05/07/23 [Rx Last Taken Unknown] Allergy/AdvReac Type Severity Reaction Status Date / Time crab Allergy Other Verified 05/07/23 06:49 shellfish derived Allergy Unknown Verified 05/07/23 06:49 Social History Smoking Status: Never smoker ROS ROS ED Constitutional Constitutional ED: Denies chills or fever(s) Musculoskeletal Musculoskeletal: Reports extremity pain; Denies neck pain Integumentary Denies Abrasions, rash or wounds Neurologic Neurologic: Denies paresthesias or weakness EXAM Physical Exam Const Vital Signs: 05/07/23 06:52 Temperature 97.8 F Temperature Source Temporal Pulse Rate 85 Respiratory Rate 18 Blood Pressure 165/98 H Blood Pressure Mean 120 Pulse Ox 98 Oxygen Delivery Method Room Air Positive well nourished and well developed General Appearance ED: well developed and NAD Neck full ROM and supple Back/Spine normal ROM and normal to inspection Extremity Extremity Narrative: Swollen entire left dorsal midfoot and tender throughout, significantly so. No deformity. Nontender plantar aspect of the foot and calcaneus, toes are nontender. Brisk cap refill all toes. Nontender at the ankle but limited range of motion of the ankle and toes due to pain in the midfoot. Skin is intact. No other apparent injury. Neuro oriented x3, no focal motor deficits and no sensory deficits noted Sensorium / Orientation: alert Psych mental status grossly normal and thought process normal Skin no wounds Rashes: no rashes MDM MDM MDM Narrative Medical decision making narrative: Three-view x-ray series of the left foot appear normal on my interpretation, no apparent fracture or displacement of bone, I do not see any evidence of a Lisfranc on any of the views. Given my high suspicion for a midfoot injury, I discussed with Dr. Wells for podiatry. He recommended trying weightbearing views, but the patient who I discussed with about this, states he is unable because it hurts too bad. Therefore we obtained a CT, I reviewed images and the report and I agree with it, there is no acute fracture or dislocation. Dr. Wells said that he would follow-up with the patient as an outpatient, patient will be given crutches, postop shoe, work restrictions, and pain medication in the meantime. Radiography Diagnostic Testing: Clinical Impression(s) from Imaging Studies Foot X-Ray 05/07/23 06:51 IMPRESSION: Subcutaneous soft tissue swelling at the dorsal aspect of the foot suggesting hematoma. There is no evidence of fracture. Electronically Signed: Devan Hernandez MD at 8:05 EST , Lower Extremity CT 05/07/23 08:27 IMPRESSION: Diffuse soft tissue swelling overlying the dorsal aspect of the midfoot No fracture is seen. Electronically Signed: Gaurav Lau MD at 9:14 EST , Discharge Plan Triage Chief Complaint: Lower Extremity Injury ED Provider: [facility] Dx/Rx/DC Orders Clinical Impression: Contusion of left foot Instructions: ED Foot Contusion Prescriptions: New oxycodone-acetaminophen [oxycodone-acetaminophen] 5-325 mg tablet 1 tab PO Q4H PRN (Reason: Pain) 2 Days Qty: 10 0RF No Action epinephrine [EpiPen 2-[place]] 0.3 mg/0.3 mL auto-injector 0.3 mg IM Q4H PRN (Reason: anaphylaxis) Qty: 2 0RF amlodipine 10 mg tablet 10 mg PO DAILY Patient Comments: Take 1 tablet by mouth once daily. Primary Care Provider: Brandon Lovett Referrals: Neo Wells DPM [Med Staff - Active Staff] - As soon as possible Brandon Lovett PA [Primary Care Provider] - Disposition Disposition: Home, Self Care
[2023-05-07] MEDS: Oxycodone/Apap 5/325 Tablet PO (07:58)
--- NOTE | 2023-05-07 08:27 | CT_ITS ---
STUDY: CT LEFT FOOT REASON FOR EXAM: Male, 37 years old. Large steel plate dropped on the top of the foot. Abrasions overlying the midfoot. RADIATION DOSAGE (If Supplied By Facility): CTDIvol = ( 15.35 ) mGy, DLP = ( 407.49 ) mGycm TECHNIQUE: Thin section transaxial imaging of the foot was obtained, with sagittal and coronal reconstructed images. Individualized dose optimization techniques were used for this CT. COMPARISON: Comparison is made with prior radiographs done earlier today. FINDINGS: Normal talus, calcaneus, and tarsal bones. Normal visualized tibiotalar, subtalar, talonavicular, calcaneocuboid, tarsal and tarsometatarsal articulations. Normal metatarsi. Normal metatarsophalangeal joint of the great toe. Normal tibial and fibular sesamoid bones. Normal interphalangeal joint of the great toe. Normal phalanges of the great toe. Normal second through fifth metatarsophalangeal joints. Normal interphalangeal joints and phalanges of the lesser toes. Diffuse soft tissue swelling more prominent overlying the dorsal aspect of the midfoot. CT/Extremity Lower without Contra IMPRESSION: Diffuse soft tissue swelling overlying the dorsal aspect of the midfoot No fracture is seen. Electronically Signed: Gaurav Lau MD at 9:14 EST ,
[2023-05-07 10:40] VITALS: RESP 12
== END 2023-05-07 10:30 | disposition home or self-care (01) ==
PROVIDERS: Emergency Provider Emergency Medicine; PCP Physician Assistant; Visit Provider Emergency Medicine
DX: S90.32XA Contusion of left foot, initial encounter (principal); I10 Essential (primary) hypertension; Y99.0 Civilian activity done for income or pay; Z79.899 Other long term (current) drug therapy; X58.XXXA Exposure to other specified factors, initial encounter
CPT/HCPCS: 73630; 73700; 99284

== ENCOUNTER 2024-01-18 18:19 | Inpatient (IN) | payer OTHER, SELFPAY ==
[2024-01-18 18:20] VITALS: BP 183/122; PULSE 74; RESP 16; TEMP 36.6; O2SAT 97; BMI 42.1
--- NOTE | 2024-01-18 19:03 | EKG12_ITS ---
Test Reason : DYSRHYTHMIA Blood Pressure : / mmHG Vent. Rate : 065 BPM Atrial Rate : 065 BPM P-R Int : 176 ms QRS Dur : 136 ms QT Int : 464 ms P-R-T Axes : 038 -41 057 degrees QTc Int : 482 ms Normal sinus rhythm Left axis deviation Left ventricular hypertrophy with QRS widening ( R in aVL , Obion product ) Abnormal ECG Confirmed by REEES SALAZAR, AUDREY ([id number]), society editor REMY DACOSTA ([id number]) on 01/19/2024 8:58:01 AM Referred By: Confirmed By:AUDREY LEIGH MD
[2024-01-18 19:23] LABS: Bacteria 0 SEEN /hpf (None Seen); Mucous, Urine 0 SEEN /hpf (<or=2+); Squamous Epithelial Cells - UA 0 SEEN /hpf (0-5); White Blood Cells 0 SEEN /hpf (0-5)
[2024-01-18 19:28] LABS: Absolute Lymphocyte Count 3.25 X10^3/uL (0.83-4.51); Absolute Neutrophil Count 5.9 X10^3/uL (2.0-7.7); Basophil% 0.9 % (0-1); Eosinophils% 3.8 % (0-5); Hematocrit 33.4 % (40-54); Hemoglobin 11.8 g/dL (13.0-16.5); Lymphocyte # 3.25 X10^3/ul (0.83-4.51); Lymphocyte % 30.7 % (19-41); Mean Corp Hgb Conc 35.3 g/dL (32-36); Mean Corpuscular Hgb 33.1 pg (27.0-32.0); Mean Corpuscular Volume 93.6 fL (80-94); Mean Platelet Vol. 10.5 fl (6.2-12.0); Monocyte# 0.92 X10^3/uL; Monocyte% 8.7 % (0-10); NRBC Flagged by Analyzer 0 % (0-5); Neutrophil # 5.86 X10^3/uL (2.7-7.7); Neutrophil % 55.4 % (47-70); Platelet Count 300 K/mm3 (150-450); RBC Distribution Width CV 13.5 % (11.6-14.6); RBC Distribution Width SD 45.6 fl (35.1-43.9); Red Blood Count 3.57 M/mm3 (4.6-6.2); White Blood Count 10.6 K/mm3 (4.4-11.0)
[2024-01-18 19:28] LABS: Color, Urine Yellow (Yellow); Glucose, Dipstick Normal (Normal); Ketone-Dipstick Negative (Negative); Leukocyte Esterase-Dipstick Negative /ul (Negative); Nitrite-Dipstick Negative (Negative); Occult Blood-Urine 25 /ul (Negative); Protein-Dipstick 30 mg/dl (Negative); Specific Gravity, Urine 1.015 (1.002-1.030); Urine Bilirubin Dipstick Negative (Negative); Urine Clarity Clear (Clear); Urine Urobilinogen Normal (Normal); Urine pH 6.5 (5.0 - 8.0)
--- NOTE | 2024-01-18 19:35 | RAD_ITS ---
INDICATION: sob EXAMINATION/TECHNIQUE: X-RAY - XR Chest 2 Views COMPARISON: 03/28/2018 FINDINGS: LINES/DEVICES: None. LUNGS: No consolidation, edema or effusion. No pneumothorax. MEDIASTINUM AND CARDIOVASCULAR STRUCTURES: Cardiac silhouette not enlarged. Central airways and mediastinal contour are unremarkable. BONES AND SOFT TISSUES: Unremarkable. RAD/Chest PA and Lateral IMPRESSION: No radiographic evidence of acute cardiopulmonary disease. Electronically Signed: Felix Edwards MD at 20:16 EDT ,
[2024-01-18 19:36] LABS: Red Blood Cells-Urine 0-5 SEEN /hpf (0-5)
[2024-01-18 19:45] LABS: BNP,B-Type NATRIURETIC PEPTIDE 7.6 pg/mL (0-100)
[2024-01-18 20:08] LABS: AST(SGOT) 217 U/L (15-37); Alanine Aminotransfer ALT/SGPT 122 U/L (16-61); Albumin, Serum 4.3 g/dL (3.2-5.0); Alkaline Phosphatase 52 U/L (45-117); Anion Gap 6 (5-15); BUN 15 mg/dL (7-18); BUN/Creat Ratio 9.7 RATIO (10-20); Bilirubin, Direct 0.18 mg/dL (0.00-0.30); Calcium,Total 9.2 mg/dL (8.5-10.1); Chloride 99 mmol/L (98-107); Creatinine, Serum 1.54 mg/dL (0.70-1.30); EST Glomerular Filtration Rate 54 mL/min (>60); Est Glom Filt Rate - Afr Amer 66 mL/min (>60); Estimated Creatinine Clearance 91.05 ml/min; Globulin 4.2 g/dL (2.2-4.2); Glucose 94 mg/dL (74-106); Potassium 3.1 mmol/L (3.5-5.1); Protein, Total 8.5 g/dL (6.4-8.2); Sodium Level 136 mmol/L (136-145); Troponin-I HS 332 pg/mL (3.0-78.0)
[2024-01-18 20:20] VITALS: BP 174/115; PULSE 68; RESP 19; O2SAT 95
--- NOTE | 2024-01-18 20:26 | EX.ED.DYSGE1 ---
HPI History of Present Illness Chief Complaint: Edema Informant: patient Narrative Narrative: Patient presents with generalized edema that has been ongoing since September. He was recently on a weight loss journey. He states he had a plateau in his weight loss and a friend told him to drink only water for his p.o. fluids. When he did this he noted that he started to have swelling everywhere. Patient went to a concert over the weekend and states that he was unable to keep up with everyone in the [facility], [place] and is what prompted his visit today. He states he gets dyspneic on exertion. Patient does report a history of hypertension and is on amlodipine. He states he has not seen his physician since the symptoms started. [facility] Medical History Hypertension Allergies Home Medications ?Medication ?Instructions ?Recorded ?Last Taken ?Type epinephrine 0.3 mg/0.3 mL 0.3 mg (0.3 mL) IM Q4H PRN 04/27/23 Unknown Rx injection, auto-injector (EpiPen anaphylaxis #2 ea 2-[place]) amlodipine 10 mg tablet 10 mg PO DAILY 05/07/23 Unknown History oxycodone-acetaminophen 5 mg-325 1 tab PO Q4H PRN Pain 2 days #10 05/07/23 Unknown Rx mg tablet TABLETS Allergy/AdvReac Type Severity Reaction Status Date / Time crab Allergy Other Verified 01/18/24 18:23 shellfish derived Allergy Unknown Verified 01/18/24 18:23 Social History Smoking Status: Current every day smoker tobacco type: smokeless tobacco ROS ROS ED Constitutional Constitutional ED: Denies chills or fever(s) Eyes Eyes: Denies discharge from eye(s) ENT ENT ED: Denies discharge from eye(s), rhinorrhea or sore throat Cardiovascular Cardiovascular: Denies chest pain Respiratory/Chest Respiratory/Chest: Reports dyspnea; Denies cough Gastrointestinal Gastrointestinal: Denies abdominal pain, nausea or vomiting Genitourinary Genitourinary ED: Denies dysuria Musculoskeletal Musculoskeletal: Reports extremity pain and other Details: Extremity pain secondary to swelling ; Denies back pain Integumentary Denies Abrasions or rash Neurologic Neurologic: Denies headache(s) or weakness Psychiatric Psychiatric: Denies anxiety or depression Allergic/Immunologic Allergic/Immunologic ED: Denies lip swelling or urticaria EXAM Physical Exam Const Vital Signs: 01/18/24 18:20 01/18/24 18:46 01/18/24 20:20 Temperature 98 F Temperature Source Temporal Pulse Rate 74 68 Respiratory Rate 16 19 H Respiratory Effort Short of Breath Respiratory Pattern Tachypnea Blood Pressure 183/122 H 174/115 H Blood Pressure Mean 142 134 Pulse Ox 97 95 Oxygen Delivery Method Room Air Room Air Positive well nourished and well developed General Appearance ED: well developed HEENT Reports moist mucous membranes Eyes EOMs intact bilaterally Chest Wall inspection of chest normal and palpation of chest normal Resp normal respiratory effort and clear to auscultation bilaterally Cardio regular rate and regular rhythm GI non-tender Palpation: soft Extremity Extremity Narrative: 3+ bilateral lower extremity edema. Edema is also noted in the hands bilaterally. No erythema or sign of infection. Neuro oriented x3 Neuro Narrative: No focal neurologic deficit. Psych mental status grossly normal Skin no rashes or lesions noted MDM MDM MDM Narrative Medical decision making narrative: IV line established. EKG obtained to evaluate for cardiac arrhythmia/ischemia. Chest x-ray obtained to evaluate for acute lung pathology, cardiac size, or mediastinal abnormality. Labwork obtained to evaluate for leukocytosis, anemia, and electrolyte derangement. History & Record Review Discussion w/independent historian: Patient and Significant other Lab Data Attestation: I reviewed the patient's lab results. Labs: Laboratory Results - last 24 hr 01/18/24 01/18/24 19:06 19:15 WBC 10.6 RBC 3.57 L Hgb 11.8 L Hct 33.4 L MCV 93.6 MCH 33.1 H MCHC 35.3 RDW Std Deviation 45.6 H RDW Coeff of Raulito 13.5 Plt Count 300 MPV 10.5 Immature Gran % (Auto) 0.500 Neut % (Auto) 55.4 Lymph % (Auto) 30.7 [place] % (Auto) 8.7 Eos % (Auto) 3.8 Baso % (Auto) 0.9 Absolute Neuts (auto) 5.9 Absolute Lymphs (auto) 3.25 Nucleated RBC % 0 Sodium 136 Potassium 3.1 L Chloride 99 Carbon Dioxide 31.0 Anion Gap 6 BUN 15 Creatinine 1.54 H Estim Creat Clear Calc 91.05 Est GFR (MDRD) Af Amer 66 Est GFR (MDRD) Non-Af 54 L BUN/Creatinine Ratio 9.7 L Glucose 94 Calcium 9.2 Total Bilirubin 1.20 H Direct Bilirubin 0.18 AST 217 H ALT 122 H Alkaline Phosphatase 52 Troponin I High Sens 332 H* B-Natriuretic Peptide 7.6 Total Protein 8.5 H Albumin 4.3 Globulin 4.2 Urine Color Yellow Urine Clarity Clear Urine pH 6.5 Ur Specific [place] 1.015 Urine Protein 30 H Urine Glucose (UA) Normal Urine Ketones Negative Urine Occult Blood 25 H Urine Nitrite Negative Urine Bilirubin Negative Urine Urobilinogen Normal Ur Leukocyte Esterase Negative Urine RBC 0-5 SEEN Urine WBC 0 SEEN Ur Squamous Epith Cells 0 SEEN Urine Bacteria 0 SEEN Urine Mucus 0 SEEN Radiography Chest X-Ray - ED: 2 View, Read by ED Physician and Chronic Changes Diagnostic Testing: Clinical Impression(s) from Imaging Studies Chest X-Ray 01/18/24 19:35 IMPRESSION: No radiographic evidence of acute cardiopulmonary disease. Electronically Signed: Felix Edwards MD at 20:16 EDT , EKG Initial EKG: Attestation: I personally reviewed and interpreted this EKG as follows: Interpretation: Sinus Rhythm (Sinus rhythm at 65 bpm. No acute ischemia. LVH noted.) Treatment and Re-Evaluation :: CBC was normal white count at 10.6 with normal differential. Hemoglobin is 11.8. Chemistry studies significant for potassium of 3.1. This is replaced orally. BUN is 15 and creatinine is 1.54. Previous creatinine was normal in 2018. Troponin is elevated at 332. LFTs reveal an AST of 217 and ALT of 122. BNP is normal at 7.6. Urinalysis does reveal 30 protein but no evidence of acute infection. Two-view chest x-ray per my interpretation reveals chronic changes with no focal infiltrate. Radiology interpretation reviewed and agrees. EKG is sinus rhythm with evidence of LVH. No acute ischemia. Patient's blood pressure remains elevated here at 174/115. My suspicion is that these changes are secondary to poorly treated hypertension and LVH. Will give the patient dose of aspirin as well as a dose of labetalol for blood pressure control. I will speak with hospitalist regarding admission. Discharge Plan Triage Chief Complaint: Edema ED Provider: Isidra Solitario Dx/Rx/DC Orders Clinical Impression: Hypertension, Elevated troponin, Hypokalemia, FELIPE (acute kidney injury) Prescriptions: No Action epinephrine [EpiPen 2-[place]] 0.3 mg/0.3 mL auto-injector 0.3 mg IM Q4H PRN (Reason: anaphylaxis) Qty: 2 0RF amlodipine 10 mg tablet 10 mg PO DAILY Patient Comments: Take 1 tablet by mouth once daily. oxycodone-acetaminophen [oxycodone-acetaminophen] 5-325 mg tablet 1 tab PO Q4H PRN (Reason: Pain) 2 Days Qty: 10 0RF Primary Care Provider: Brandon Lovett Referrals: Brandon Lovett PA [Primary Care Provider] - Print Language: Ukrainian Disposition Disposition: Acute Care [facility]
[2024-01-18] MEDS: Potassium Chloride Oral Tablet 20 MEQ 40 MEQ PO (20:28)
[2024-01-18] MEDS: Aspirin 81 MG TAB.CHEW 324 MG PO (20:40)
[2024-01-18] MEDS: Labetalol (Prefilled) 20 MG/4 ML IV (20:41)
[2024-01-18 20:43] VITALS: BP 172/110; PULSE 60
[2024-01-18 20:47] VITALS: BP 158/102; PULSE 62; RESP 12; O2SAT 97
--- NOTE | 2024-01-18 21:08 | PCM.HP.STD ---
HPI - General General Date of Admission: 01/18/24 Date of Service: 01/18/24 Chief Complaint: Worsening generalized edema and fatigue HPI Narrative EVAN TAN, is a 38 M who presented to [facility] ED on 01/18/2024 with several month history of worsening generalized edema and fatigue. Saw patient at bedside in the ED, present. Patient was sitting up comfortably in bed, conversing normally, in no acute distress. Patient states that since around September he has noticed worsening generalized edema of his legs and hands. Has history of hypertension and takes amlodipine 10 mg daily at home. Has been taking amlodipine for the last few years. Not on any other home medications. Does not check his blood pressures at home. Notably did run out of his amlodipine about a week ago and has not taken it since then. Patient has BMI of 41 on admit here and notes that he has been working on weight loss over the past several months. Has been doing intermittent fasting and notes that consequently he has been drinking significant amount of water recently. States that his activity level has been lower over the past few months and at a concert this weekend he was not able to keep up with everyone else in the [facility], which prompted him to come in for further evaluation. Patient currently reports mild headache and is feeling hungry since he has not eaten since lunch, otherwise denies any chest pain, shortness of breath, abdominal pain, fevers or chills. Does report continued lower extremity and hand swelling, similar to previous days. No other acute concerns at this time. Vitals in ED notable for severe hypertension to 180s over 120s, otherwise unremarkable. Labs notable for hemoglobin 11.8, potassium 3.1, bicarb 31, creatinine 1.54, BUN 15, total bilirubin 1.20, AST 217, ALT 122. Troponin trend 339 > 332. BNP normal. TSH severely elevated at 278. UA showed 30 urine protein, was otherwise unremarkable. Chest x-ray was unremarkable. EKG showed sinus rhythm with heart 65, LVH, no acute ST changes. [facility] Medical History Hypertension Allergies Home Medications ?Medication ?Instructions ?Recorded ?Last Taken ?Type epinephrine 0.3 mg/0.3 mL 0.3 mg (0.3 mL) IM Q4H PRN 04/27/23 Unknown Rx injection, auto-injector (EpiPen anaphylaxis #2 ea 2-[place]) amlodipine 10 mg tablet 10 mg PO DAILY 05/07/23 Unknown History Allergy/AdvReac Type Severity Reaction Status Date / Time crab Allergy Other Verified 01/18/24 18:23 shellfish derived Allergy Unknown Verified 01/18/24 18:23 Social History Smoking Status: Current every day smoker tobacco type: smokeless tobacco ROS Constitutional Constitutional: Reports fatigue; Denies chills or fever(s) Eyes Eyes: Denies change in vision Cardiovascular Cardiovascular: Reports dyspnea on exertion and edema; Denies chest pain, lightheadedness or palpitations Respiratory/Chest Respiratory/Chest: Denies cough, shortness of breath at rest or wheezing Gastrointestinal Gastrointestinal: Denies abdominal pain, constipation, diarrhea, nausea or vomiting Genitourinary Genitourinary: Denies dysuria Musculoskeletal Musculoskeletal: Reports other Details: Bilateral lower extremity swelling Neurologic Neurologic: Reports headache(s); Denies dizziness, focal weakness, numbness or paresthesias Vital Signs Vital Signs Vital Signs: 01/18/24 18:20 01/18/24 18:46 01/18/24 20:20 Temperature 98 F Temperature Source Temporal Pulse Rate 74 68 Respiratory Rate 16 19 H Respiratory Effort Short of Breath Respiratory Pattern Tachypnea Blood Pressure 183/122 H 174/115 H Blood Pressure Mean 142 134 Pulse Ox 97 95 Oxygen Delivery Method Room Air Room Air 01/18/24 20:43 01/18/24 20:47 Temperature Temperature Source Pulse Rate 60 62 Respiratory Rate 12 Respiratory Effort Respiratory Pattern Blood Pressure 172/110 H 158/102 H Blood Pressure Mean 130 120 Pulse Ox 97 Oxygen Delivery Method Room Air Weight Weight: 133.175 kg Body Mass Index (BMI) 42.1 Physical Exam Const alert, oriented x3 and no apparent distress Constitutional Narrative: Pleasant younger male, morbidly obese, mildly fatigued appearing, otherwise sitting up comfortably in bed, conversing normally, in no acute distress. General Appearance: cooperative and comfortable HEENT normocephalic, head/scalp atraumatic, hearing grossly normal bilaterally and nasal mucous membranes and turbinates normal Eyes PERRL, EOMs intact bilaterally and conjunctivae normal Neck full ROM Chest inspection of chest normal Resp normal respiratory effort, normal air movement, no use of accessory muscles and clear to auscultation bilaterally Cardio regular rate, regular rhythm, no murmurs and peripheral pulses 2+ throughout GI normal to inspection, nondistended, normoactive bowel sounds, soft to palpation, non-tender and non-distended Back/Spine normal ROM Extremity full ROM Extremity Narrative: +2-3 nonpitting lower extremity edema noted. Skin no rashes or lesions noted Neuro moves all extremities and no focal motor deficits Speech: speech normal Psych mental status grossly normal Results Lab / Micro Data 01/18/24 19:15 01/18/24 19:15 Labs: Laboratory Results - last 24 hr 01/18/24 19:06: Urine Color Yellow, Urine Clarity Clear, Urine pH 6.5, Ur Specific [place] 1.015, Urine Protein 30 H, Urine Glucose (UA) Normal, Urine Ketones Negative, Urine Occult Blood 25 H, Urine Nitrite Negative, Urine Bilirubin Negative, Urine Urobilinogen Normal, Ur Leukocyte Esterase Negative, Urine RBC 0-5 SEEN, Urine WBC 0 SEEN, Ur Squamous Epith Cells 0 SEEN, Urine Bacteria 0 SEEN, Urine Mucus 0 SEEN 01/18/24 19:15: WBC 10.6, RBC 3.57 L, Hgb 11.8 L, Hct 33.4 L, MCV 93.6, MCH 33.1 H, MCHC 35.3, RDW Std Deviation 45.6 H, RDW Coeff of Raulito 13.5, Plt Count 300, MPV 10.5, Immature Gran % (Auto) 0.500, Neut % (Auto) 55.4, Lymph % (Auto) 30.7, [place] % (Auto) 8.7, Eos % (Auto) 3.8, Baso % (Auto) 0.9, Absolute Neuts (auto) 5.9, Absolute Lymphs (auto) 3.25, Nucleated RBC % 0, Sodium 136, Potassium 3.1 L, Chloride 99, Carbon Dioxide 31.0, Anion Gap 6, BUN 15, Creatinine 1.54 H, Estim Creat Clear Calc 91.05, Est GFR (MDRD) Af Amer 66, Est GFR (MDRD) Non-Af 54 L, BUN/Creatinine Ratio 9.7 L, Glucose 94, Calcium 9.2, Total Bilirubin 1.20 H, Direct Bilirubin 0.18, AST 217 H, ALT 122 H, Alkaline Phosphatase 52, Troponin I High Sens 332 H*, B-Natriuretic Peptide 7.6, Total Protein 8.5 H, Albumin 4.3, Globulin 4.2 Imaging Radiology Impression Chest X-Ray 01/18/24 19:35 IMPRESSION: No radiographic evidence of acute cardiopulmonary disease. Electronically Signed: Felix Edwards MD at 20:16 EDT Reading Location ID and State: [facility] / [place] Tel , Service support , Assessment & Plan Assessment/Plan (1) Hypothyroidism: (2) Elevated troponin: (3) Hypertensive urgency: (4) Hypokalemia: (5) Elevated serum creatinine: PLAN: Plan Patient is a 38-year-old male who presented to [facility] ED on 01/18/2024 with worsening generalized edema and fatigue. 1. New onset severe hypothyroidism ? Admit under inpatient status to PCU. TSH 278 on admit, T4 pending. Generalized edema noted but mentating appropriately, normothermic, hypertensive and breathing comfortably on room air, no concern for myxedema coma. Will give dose of IV Synthroid 150 mg x 1 then start p.o. Synthroid 100 mcg daily. A.m. cortisol ordered. Thyroid antibodies ordered. Can consider thyroid ultrasound as needed. 2. NSTEMI type II ? Troponin trend 339 > 332 on admit. EKG normal, no chest pain, hemodynamically stable. Strongly suspect elevated troponins are secondary to demand ischemia due to both severe hypothyroidism and poorly controlled hypertension. Echo ordered as noted below. No need to monitor further troponins. Treatment of hypothyroidism and hypertension as noted above and below. 3. Hypertensive urgency, history of hypertension ? Hypertensive to the 180s over 120s on admission with mild headache, elevated serum creatinine and elevated troponins. Has history of hypertension, has been on amlodipine 10 mg daily for the last few years but ran out of medication about 1 week ago. Chest x-ray unremarkable and stable on room air. Will restart home amlodipine 10 mg daily and also start lisinopril 10 mg daily. Will give one-time dose of IV Lasix 40 mg but swelling is presumed secondary to hyperthyroidism as noted above, will not start scheduled oral Lasix. Monitor BP closely and adjust medications as needed. 4. Elevated serum creatinine ? Creatinine 1.54 on admit. Last creatinine value in our system was 0.8 back in 2018. Unclear if elevated creatinine is secondary to FELIPE versus mild CKD. Does have protein on UA, and random total protein and urine and urine protein to creatinine ratio are both elevated. Renal/bladder ultrasound ordered to rule out postobstructive etiology. Given higher suspicion for CKD, starting lisinopril as noted above. Monitor daily BMP and urine output. 5. Hypokalemia ? Potassium 3.1 on admit. Suspect due to hypothyroidism. Magnesium normal. Replete potassium as needed. 6. Elevated LFTs ? Unclear etiology, may be secondary to fatty liver disease. Right upper quadrant ultrasound ordered for further evaluation. Trend LFTs. 7. Normocytic anemia ? Hemoglobin 11.8, MCV 93 on admit. Last hemoglobin was 14 back in 2018. Iron studies with ferritin, B12 and folate normal. May be secondary to mild anemia of renal disease. Trend daily CBC. 8. Morbid obesity ? BMI 41 on admit. Complicates hospital course, care and prognosis. DVT prophylaxis: Lovenox twice daily CODE STATUS: Full code, verified Expected disposition: Home, 2 to 3 days Total clinical time spent by myself addressing the patient's medical issues, reviewing all the data, and collaborating with patient's care team: 75 minutes. Charges/Coding Visit Charges Inpatient E&M: 86964 Init Hosp L3
[2024-01-18 22:00] VITALS: BP 142/101; PULSE 65; RESP 18; TEMP 36.7; TEMP 36.8; O2SAT 95
[2024-01-18 22:39] LABS: Protein, Urine (Random) 27.6 mg/dL (<11.9); Protein:Creat Ratio 219 mg/g CRE (0-200)
[2024-01-18 22:45] VITALS: BMI 41.5
--- NOTE | 2024-01-18 22:45 | US_ITS ---
EXAM: US RETROPERITONEAL LIMITED, RENAL CLINICAL INDICATION: FELIPE, r/o obstruction TECHNIQUE: Limited grayscale and color Doppler sonographic evaluation of the retroperitoneum was performed. COMPARISON: No relevant prior studies available. FINDINGS: RIGHT KIDNEY: 11.4 cm. No hydronephrosis. No shadowing calculus. No perinephric collection is demonstrated. LEFT KIDNEY: 11.1 cm, with a shadowing echogenic stone measuring 7 mm in the upper pole. No hydronephrosis. No perinephric collection is demonstrated. BLADDER: No filling defects identified in the bladder. US/Kidney and Bladder IMPRESSION: 1. No hydronephrosis or other acute findings. 2. There is a nonobstructing 7 mm stone in the upper pole of the left kidney. Electronically Signed: Conner Tomlinson MD at 3:12 EDT ,
--- NOTE | 2024-01-18 22:45 | ECHOCS_ITS ---
Reason For Study: HTN Procedure This was a 2D Doppler, Color Flow transthoracic echocardiogram. Contrast injection was performed. Exam performed portable in patient room. Left Ventricle Normal LV size. Mild concentric left ventricular hypertrophy. Left ventricular systolic function is normal. The left ventricular ejection fraction is 55 %. No regional wall motion abnormalities noted. Right Ventricle Normal RV size. Normal systolic function. Atria Normal left atrium. Normal right atrium. Mitral Valve Normal mitral valve. Tricuspid Valve Normal tricuspid valve. Aortic Valve Trisinus/trileaflet aortic valve. Pulmonic Valve The pulmonic valve is not well visualized. Great Vessels Normal aortic root. The pulmonary artery is normal size. Normal inferior vena cava. Pericardium/Pleural No pericardial effusion. Medication Diluted definity 2ml given slow IV push to enhance endocardial definition. MMode/2D Measurements & Calculations LVIDd: 5.3 cm IVSd: 1.2 cm LVOT diam: 2.1 cm LVIDs: 3.7 cm LVPWd: 1.1 cm RVDd: 2.5 cm FS: 30.1 % LVOT area: 3.5 cm2 Ao root diam: 3.3 cm LAV(MOD-bp): 43.0 ml LVAd ap4: 37.0 cm2 LAV(MOD-bp) Indexed: 17.6 ml/m2 LVLd ap4: 9.8 cm LAV(MOD-sp2): 47.5 ml EDV(MOD-sp4): 116.7 ml LAV(MOD-sp4): 37.4 ml EDV(sp4-el): 118.3 ml LVAs ap4: 22.5 cm2 LVLs ap4: 8.9 cm ESV(MOD-sp4): 47.6 ml ESV(sp4-el): 48.0 ml EF(MOD-sp4): 59.2 % EF(sp4-el): 59.4 % SV(MOD-sp4): 69.1 ml SV(sp4-el): 70.3 ml LA A4 area: 15.6 cm2 RA A4 area: 8.2 cm2 Time Measurements MV dec time: 0.22 sec Doppler Measurements & Calculations MV E max malachi: 68.4 cm/sec Lat Peak E' Malachi: 13.5 cm/sec Med Peak E' Malachi: 6.6 cm/sec MV A max malachi: 25.7 cm/sec E/E' lat: 5.1 E/E' med: 10.3 MV E/A: 2.7 MV dec slope: 310.8 cm/sec2 Ao V2 max: 142.6 cm/sec LV V1 max: 95.2 cm/sec Ao max P.1 mmHg LV V1 max P.6 mmHg Ao V2 mean: 104.0 cm/sec LV V1 mean P.0 mmHg Ao mean P.7 mmHg LV V1 mean: 64.8 cm/sec Ao V2 VTI: 30.1 cm LV V1 VTI: 22.4 cm AV (velocity ratio): 0.74 LIONEL(I,D): 2.6 cm2 LIONEL(V,D): 2.4 cm2 SV(LVOT): 78.9 ml PA V2 max: 90.2 cm/sec TR max malachi: 216.9 cm/sec PA max PG (full): 1.4 mmHg TR max P.8 mmHg ECHO/Echo Complete W/ Contrast Interpretation Summary Normal LV size. The left ventricular ejection fraction is 55 %. Left ventricular systolic function is normal. Mild concentric left ventricular hypertrophy. Ordering Physician: Jasbir Woodward Referring Physician: Zen Lovett Performed By: Paula Pablo RVT, RDCS and Student
[2024-01-18 22:55] VITALS: BP 191/120; PULSE 67; RESP 18; TEMP 35.9; O2SAT 99
[2024-01-18] MEDS: Enoxaparin 40 MG/0.4 ML Syringe SC (23:13)
[2024-01-18] MEDS: Lisinopril 10 MG Tablet PO (23:13)
[2024-01-18] MEDS: amLODIPine 5 MG Tablet PO (23:13)
[2024-01-19] VITALS (9 sets, daily range): BP systolic 115–159; BP diastolic 75–92; PULSE 51–89; RESP 14–20; TEMP 36.3–36.7; O2SAT 97–98
[2024-01-19 00:22] LABS: Troponin-I HS 339 pg/mL (3.0-78.0)
[2024-01-19 00:30] LABS: Hemoglobin A1c 5.7 % (3.8-5.6)
[2024-01-19 00:33] LABS: Ferritin 339 ng/mL (26-388); Iron 118 ug/dL (65-175); Iron Binding Capacity,Total 377 ug/dL (250-450); Magnesium 2.6 mg/dL (1.6-2.6); PERCENT IRON SATURATION 31.3 % (15.0-55.0)
[2024-01-19] MEDS: 0.9% Saline Lock 10 ML Syringe IV ×2 (01:07→03:12)
[2024-01-19] MEDS: Furosemide 40 MG/4 ML Vial IV (01:07)
[2024-01-19 02:23] LABS: Vitamin B12 819 pg/mL (211-911)
[2024-01-19 02:31] LABS: Troponin-I HS 335 pg/mL (3.0-78.0)
--- NOTE | 2024-01-19 02:56 | US_ITS ---
HISTORY: elevated LFTs. TECHNIQUE: Teresa scale and color doppler imaging was performed of the right upper quadrant. 65 images. COMPARISON: None. FINDINGS: LIVER: 23.3 cm in length. Increased echogenicity without focal lesion demonstrated. No intrahepatic ductal dilatation. MAIN PORTAL VEIN: Not well visualized due to overlying bowel gas and body habitus.. COMMON BILE DUCT: 6 mm in diameter. GALLBLADDER: No gallstones. 2 mm wall thickness. No pericholecystic fluid. Sonographic Baker sign negative. PANCREAS: Not well visualized due to overlying bowel gas and body habitus. RIGHT KIDNEY: 12.2 cm in length with a cortical thickness of 1.8 cm. No hydronephrosis or gross renal mass demonstrated. US/Abdomen Limited IMPRESSION: Hepatic steatosis with hepatomegaly. No sonographic evidence of cholelithiasis. Electronically Signed: Christie Mancilla MD at 9:26 EDT ,
[2024-01-19 02:57] LABS: T4 Free Direct 0.16 ng/dL (0.76-1.46)
[2024-01-19] MEDS: LEVOTHYROXINE SODIUM 100 MCG VIAL 150 MCG IV (03:12)
[2024-01-19] MEDS: Levothyroxine 100 MCG Tablet PO (05:43)
[2024-01-19 06:18] LABS: Hematocrit 38.2 % (40-54); Hemoglobin 11.9 g/dL (13.0-16.5); Mean Corp Hgb Conc 31.2 g/dL (32-36); Mean Corpuscular Hgb 34.6 pg (27.0-32.0); Mean Platelet Vol. 10.2 fl (6.2-12.0); Platelet Count 197 K/mm3 (150-450); RBC Distribution Width CV 13.9 % (11.6-14.6); RBC Distribution Width SD 56.2 fl (35.1-43.9); Red Blood Count 3.44 M/mm3 (4.6-6.2); White Blood Count 9.1 K/mm3 (4.4-11.0)
[2024-01-19 06:49] LABS: AST(SGOT) 169 U/L (15-37); Alanine Aminotransfer ALT/SGPT 107 U/L (16-61); Alkaline Phosphatase 49 U/L (45-117); Anion Gap 7 (5-15); BUN 14 mg/dL (7-18); BUN/Creat Ratio 9.4 RATIO (10-20); Calcium,Total 9.2 mg/dL (8.5-10.1); Chloride 101 mmol/L (98-107); Cholesterol 270 mg/dL (200); Creatinine, Serum 1.49 mg/dL (0.70-1.30); EST Glomerular Filtration Rate 57 mL/min (>60); Est Glom Filt Rate - Afr Amer 68 mL/min (>60); Estimated Creatinine Clearance 93.45 ml/min; Glucose 124 mg/dL (74-106); High Density Lipoprotein 32 mg/dL; Potassium 3.1 mmol/L (3.5-5.1); Sodium Level 137 mmol/L (136-145); Triglycerides 573 mg/dL
--- NOTE | 2024-01-19 07:55 | PCM.PN.HOSP ---
Reason for Visit Reason for Visit: Diagnoses Hypothyroidism, unspecified (01/18/24) Hypokalemia (01/18/24) Hypertensive urgency (01/18/24) Other specified abnormal findings of blood chemistry (01/18/24) Subjective Subjective Patient is a 38-year-old male who presented with worsening generalized edema and fatigue. Objective Data Objective Data Vital Signs: Vital Signs Temp Pulse Resp BP Pulse Ox O2 Del Method 97.4 F L 63 16 159/87 H 98 Room Air 01/19/24 03:40 01/19/24 03:40 01/19/24 03:40 01/19/24 03:40 01/19/24 03:40 01/19/24 03:40 Oxygen Delivery Method Room Air Weight: 131.5 kg Body Mass Index (BMI) 41.5 Intake & Output: Intake and Output for Last 24 Hours 01/17/24 01/18/24 01/19/24 23:59 23:59 23:59 Intake Total 200 / 200 Output Total 650 / 650 1125 / 1125 Balance -650 / -450 -925 / -925 Lab / Micro Data 01/19/24 06:01 01/19/24 06:01 Labs: Laboratory Results - last 24 hr 01/18/24 19:06: Urine Color Yellow, Urine Clarity Clear, Urine pH 6.5, Ur Specific [place] 1.015, Urine Protein 30 H, Urine Glucose (UA) Normal, Urine Ketones Negative, Urine Occult Blood 25 H, Urine Nitrite Negative, Urine Bilirubin Negative, Urine Urobilinogen Normal, Ur Leukocyte Esterase Negative, Urine RBC 0-5 SEEN, Urine WBC 0 SEEN, Ur Squamous Epith Cells 0 SEEN, Urine Bacteria 0 SEEN, Urine Mucus 0 SEEN, U Random Total Protein 27.6 H, Urine Creatinine 126.00, Protein/Creatinin Ratio 219 H 01/18/24 19:15: WBC 10.6, RBC 3.57 L, Hgb 11.8 L, Hct 33.4 L, MCV 93.6, MCH 33.1 H, MCHC 35.3, RDW Std Deviation 45.6 H, RDW Coeff of Raulito 13.5, Plt Count 300, MPV 10.5, Immature Gran % (Auto) 0.500, Neut % (Auto) 55.4, Lymph % (Auto) 30.7, [place] % (Auto) 8.7, Eos % (Auto) 3.8, Baso % (Auto) 0.9, Absolute Neuts (auto) 5.9, Absolute Lymphs (auto) 3.25, Nucleated RBC % 0, Sodium 136, Potassium 3.1 L, Chloride 99, Carbon Dioxide 31.0, Anion Gap 6, BUN 15, Creatinine 1.54 H, Estim Creat Clear Calc 91.05, Est GFR (MDRD) Af Amer 66, Est GFR (MDRD) Non-Af 54 L, BUN/Creatinine Ratio 9.7 L, Glucose 94, Calcium 9.2, Magnesium 2.6, Iron 118, TIBC 377, Iron Saturation 31.3, Ferritin 339, Total Bilirubin 1.20 H, Direct Bilirubin 0.18, AST 217 H, ALT 122 H, Alkaline Phosphatase 52, Troponin I High Sens 332 H*, B-Natriuretic Peptide 7.6, Total Protein 8.5 H, Albumin 4.3, Globulin 4.2, Folate 38.20, TSH 278.00 H 01/18/24 23:45: Hemoglobin A1c 5.7 H, Troponin I High Sens 339 H* 01/19/24 01:49: Troponin I High Sens 335 H*, Vitamin B12 819, Free T4 0.16 L 01/19/24 06:01: WBC 9.1, RBC 3.44 L, Hgb 11.9 L, Hct 38.2 L, MCV 111.0 H D, MCH 34.6 H, MCHC 31.2 L D, RDW Std Deviation 56.2 H, RDW Coeff of [place]ul[place] 13.9, Plt Count 197, MPV 10.2, Sodium 137, Potassium 3.1 L, Chloride 101, Carbon Dioxide 29.0, Anion Gap 7, BUN 14, Creatinine 1.49 H, Estim Creat Clear Calc 93.45, Est GFR (MDRD) Af Amer 68, Est GFR (MDRD) Non-Af 57 L, BUN/Creatinine Ratio 9.4 L, Glucose 124 H, Calcium 9.2, Total Bilirubin 0.90, AST 169 H, ALT 107 H, Alkaline Phosphatase 49, Total Protein 8.0, Albumin 4.0, Globulin 4.0, Albumin/Globulin Ratio 1.0, Triglycerides 573 H, Cholesterol 270 H, LDL Cholesterol TNP, VLDL Cholesterol TNP, HDL Cholesterol 32 L, Cortisol 11.30 Radiography Diagnostic Testing: Radiology Impression Chest X-Ray 01/18/24 19:35 IMPRESSION: No radiographic evidence of acute cardiopulmonary disease. Electronically Signed: Felix Edwards MD at 20:16 EDT , Renal Ultrasound 01/18/24 22:45 IMPRESSION: 1. No hydronephrosis or other acute findings. 2. There is a nonobstructing 7 mm stone in the upper pole of the left kidney. Electronically Signed: Conner Tomlinson MD at 3:12 EDT , Physical Exam Narrative GENERAL: cooperative HEENT: Atraumatic; normocephalic EYES; Anicteric, Normal Conjunctiva NECK; supple, normal thyroid, RESPIRATORY: Diminished to auscultation CARDIOVASCULAR: Regular S1 S2, GI: soft, normoactive bowel sounds, : No Renal angle tenderness; EXTREMITIES: edema, no clubbing, MUSCULOSKELETAL: no muscle wasting NEURO: Awake; no lateralizing signs. SKIN: No Rash PSYCH; Flat affect Assessment & Plan Assessment/Plan (1) Hypothyroidism: (2) Elevated troponin: (3) Hypertensive urgency: (4) Hypokalemia: (5) Elevated serum creatinine: PLAN: Plan Patient is a 38-year-old male who presented with worsening generalized edema and fatigue. Patient was found to have markedly elevated TSH consistent with newly diagnosed severe hypothyroidism 1.New onset severe hypothyroidism ? Contributory to patient's fatigue. TSH on admission was 278. Patient did receive 150 mg of IV levothyroxine and subsequently started on p.o. levothyroxine. As part of his management a.m. cortisol and thyroid antibodies ordered 2. Elevated troponin ? Type II secondary to severe hypothyroidism as well as poorly controlled hypertension echo ordered to assess for regional wall motion abnormalities 3.Acute hypertensive emergency ? Patient blood pressure on admission was 190/120. Patient has apparently not been compliant with his medication therapy had ran out of his prescriptions a week prior to his admission. Home medications restarted also placed on hydralazine for systolic blood pressure greater than 160 4. Acute kidney injury ? Baseline creatinine reviewed was 0.8 creatinine on admission was 1.54. Patient started on fluids renal ultrasound ordered for subsequent evaluation 5. Hypokalemia -Corrected per protocol, repeat labs ordered for monitoring 6. Class III obesity with BMI of 41.6 ? Complicating care weight loss advised 7. Anemia - Secondary to chronic disorder monitoring H&H and transfuse if patient becomes symptomatic or hemoglobin falls below 7 8. Elevated LFTs - do suspect nonalcoholic fatty liver disease right upper quadrant ultrasound ordered for subsequent eval 10. DVT prophylaxis ? SC Lovenox Time spent in the patient's overall evaluation,decision-making process, review of diagnostic data, adjustment of management, discussion with other providers, nursing nursing and ancillary staff involved in patient's care documentation, 55 Minutes Charges/Coding Visit Charges Inpatient E&M: 83553 [facility] Hosp L3
[2024-01-19] MEDS: amLODIPine 10 MG Tablet PO (08:43)
[2024-01-19] MEDS: Lisinopril 10 MG Tablet PO (08:43)
[2024-01-19] MEDS: Enoxaparin 40 MG/0.4 ML Syringe SC ×2 (08:45→20:50)
--- NOTE | 2024-01-19 09:35 | CASEMGMT ---
VARUN MORTENSEN Assessment Face to Face with patient for initial transition planning/care coordination assessment. RN FESTUS introduced self and role at [facility], pt voices understanding. Pt is A&Ox4 and is resting comfortably in bed and is calm. Care providers, pharmacy, and demographics verified. Admitting dx: HTN LACE Strata: 1 PCP: Pt states that his old PCP retired and he does not currently have a PCP. Provider list given at this time. Specialists: Denies current Preferred Pharmacy: [facility] Insurance: MMO Prescription Benefit: Yes LNOK: Sana Henderson (W) Living Arrangements: Pt lives with his and two kids (ages 9 & 5) in a 2 story home with 3 steps to enter ADLs/IADLs: Ind Transportation: Self, DME: BP Monitor. Denies further concerns HHC/SNF: Denies history or needs Pt?s goal: Home Plan: Home no needs. 6-Click is 24. Pt denies additional needs at this time. CM to follow for anticoagulant Rx. CM to follow for safe DC home from [facility]. Angie Loo RN, CM
[2024-01-19] MEDS: Furosemide 100 MG/10 ML Vial 80 MG IV (17:55)
[2024-01-19] MEDS: Acetaminophen 325 MG Tablet 650 MG PO (20:16)
[2024-01-20] VITALS: BP 150/102; PULSE 89; RESP 16; TEMP 36.4; O2SAT 97
[2024-01-20 05:00] VITALS: PULSE 88
[2024-01-20 06:03] LABS: Absolute Lymphocyte Count 3.21 X10^3/uL (0.83-4.51); Absolute Neutrophil Count 4.8 X10^3/uL (2.0-7.7); Basophil# 0.07 X10^3/uL; Basophil% 0.8 % (0-1); Eosinophils% 4.3 % (0-5); Hematocrit 36.3 % (40-54); Hemoglobin 12.4 g/dL (13.0-16.5); Lymphocyte # 3.21 X10^3/ul (0.83-4.51); Lymphocyte % 34.7 % (19-41); Mean Corp Hgb Conc 34.2 g/dL (32-36); Mean Corpuscular Hgb 33.2 pg (27.0-32.0); Mean Corpuscular Volume 97.1 fL (80-94); Mean Platelet Vol. 10.4 fl (6.2-12.0); Monocyte# 0.68 X10^3/uL; Monocyte% 7.4 % (0-10); NRBC Flagged by Analyzer 0 % (0-5); Neutrophil # 4.83 X10^3/uL (2.7-7.7); Neutrophil % 52.2 % (47-70); Platelet Count 301 K/mm3 (150-450); RBC Distribution Width CV 14.1 % (11.6-14.6); RBC Distribution Width SD 49.9 fl (35.1-43.9); Red Blood Count 3.74 M/mm3 (4.6-6.2); White Blood Count 9.3 K/mm3 (4.4-11.0)
[2024-01-20 06:33] LABS: Anion Gap 5 (5-15); BUN 19 mg/dL (7-18); BUN/Creat Ratio 11.9 RATIO (10-20); Calcium,Total 9.1 mg/dL (8.5-10.1); Chloride 99 mmol/L (98-107); Creatinine, Serum 1.59 mg/dL (0.70-1.30); EST Glomerular Filtration Rate 53 mL/min (>60); Est Glom Filt Rate - Afr Amer 64 mL/min (>60); Estimated Creatinine Clearance 87.58 ml/min; Glucose 106 mg/dL (74-106); Magnesium 2.5 mg/dL (1.6-2.6); Phosphorus 4.3 mg/dL (2.5-4.9); Potassium 3.4 mmol/L (3.5-5.1); Sodium Level 136 mmol/L (136-145)
[2024-01-20 07:57] VITALS: BP 137/67; PULSE 76; RESP 12; TEMP 36.4; O2SAT 96
[2024-01-20] MEDS: Lisinopril 10 MG Tablet PO (08:02)
[2024-01-20] MEDS: Levothyroxine 100 MCG Tablet PO (08:02)
[2024-01-20] MEDS: amLODIPine 10 MG Tablet PO (08:02)
[2024-01-20 08:06] VITALS: O2SAT 95
[2024-01-20] MEDS: Acetaminophen 325 MG Tablet 650 MG PO (08:58)
--- NOTE | 2024-01-20 09:16 | PCM.DC.SUM ---
Providers Date of Admission: 01/18/24 Date of Discharge: 01/20/24 Primary Care Physician: SHANDA Carver Reason For Visit: UNCONTROLLED HYPERTENSION WITH FELIPE Diagnosis Discharge Diagnosis (1) Hypothyroidism: Status: Acute Code(s): E03.9 - Hypothyroidism, unspecified (2) Elevated troponin: Status: Acute Code(s): R79.89 - Other specified abnormal findings of blood chemistry (3) Hypertensive urgency: Status: Acute Code(s): I16.0 - Hypertensive urgency (4) Hypokalemia: Status: Acute Code(s): E87.6 - Hypokalemia (5) Elevated serum creatinine: Status: Acute Code(s): R79.89 - Other specified abnormal findings of blood chemistry Plan Patient is a 38-year-old male who presented with worsening generalized edema and fatigue. Patient was found to have markedly elevated TSH consistent with newly diagnosed severe hypothyroidism 1.New onset severe hypothyroidism ? Contributory to patient's fatigue. TSH on admission was 278. Patient did receive 150 mg of IV levothyroxine and subsequently started on p.o. levothyroxine. As part of his management a.m. cortisol and thyroid antibodies ordered 2. Elevated troponin ? Type II secondary to severe hypothyroidism as well as poorly controlled hypertension echo ordered to assess for regional wall motion abnormalities 3.Acute hypertensive emergency ? Patient blood pressure on admission was 190/120. Patient has apparently not been compliant with his medication therapy had ran out of his prescriptions a week prior to his admission. Home medications restarted also placed on hydralazine for systolic blood pressure greater than 160 4. Acute kidney injury ? Baseline creatinine reviewed was 0.8 creatinine on admission was 1.54. Patient started on fluids renal ultrasound ordered for subsequent evaluation 5. Acute congestive heart failure with preserved ejection fraction ? Echo demonstrated EF of 55%. Patient responded to diuretic therapy with improvement in symptoms 6. Class III obesity with BMI of 41.6 ? Complicating care weight loss advised 7. Anemia - Secondary to chronic disorder monitoring H&H and transfuse if patient becomes symptomatic or hemoglobin falls below 7 8. Elevated LFTs - do suspect nonalcoholic fatty liver disease right upper quadrant ultrasound ordered for subsequent eval 9. Hypokalemia -Corrected per protocol, repeat labs ordered for monitoring 10. DVT prophylaxis ? SC Lovenox Time spent in the patient's overall evaluation,decision-making process, review of diagnostic data, adjustment of management, discussion with other providers, nursing nursing and ancillary staff involved in patient's care documentation, 35 minutes Medications at Discharge Home Medications epinephrine 0.3 mg/0.3 mL injection, auto-injector (EpiPen 2-[place]) 0.3 mg (0.3 mL) IM Q4H PRN anaphylaxis #2 ea 04/27/23 amlodipine 10 mg tablet 10 mg PO DAILY #90 tabs 01/20/24 furosemide 40 mg tablet 40 mg PO DAILY #30 tabs 01/20/24 levothyroxine 100 mcg tablet 100 mcg PO DAILY@0600 #60 tabs 01/20/24 metoprolol succinate 50 mg tablet,extended release 24 hr 50 mg PO DAILY #90 tabs 01/20/24 potassium chloride 20 mEq tablet,extended release(part/cryst) 20 meq PO DAILYCM #30 tabs 01/20/24 Physical Exam Narrative GENERAL: cooperative HEENT: Atraumatic; normocephalic EYES; Anicteric, Normal Conjunctiva NECK; supple, normal thyroid, RESPIRATORY: Diminished to auscultation CARDIOVASCULAR: Regular S1 S2, GI: soft, normoactive bowel sounds, : No Renal angle tenderness; EXTREMITIES: edema, no clubbing, MUSCULOSKELETAL: no muscle wasting NEURO: Awake; no lateralizing signs. SKIN: No Rash PSYCH; Flat affect Weight / BMI Weight Weight: 131.5 kg Body Mass Index (BMI) 41.5 ABG / Lab / Microbiology Data 01/20/24 05:28 01/20/24 05:28 Laboratory: Laboratory Results - last 24 hr 01/20/24 05:28: WBC 9.3, RBC 3.74 L, Hgb 12.4 L, Hct 36.3 L, MCV 97.1 H D, MCH 33.2 H, MCHC 34.2 D, RDW Std Deviation 49.9 H, RDW Coeff of Raulito 14.1, Plt Count 301, MPV 10.4, Immature Gran % (Auto) 0.600, Neut % (Auto) 52.2, Lymph % (Auto) 34.7, [place] % (Auto) 7.4, Eos % (Auto) 4.3, Baso % (Auto) 0.8, Absolute Neuts (auto) 4.8, Absolute Lymphs (auto) 3.21, Nucleated RBC % 0, Sodium 136, Potassium 3.4 L, Chloride 99, Carbon Dioxide 32.0, Anion Gap 5, BUN 19 H, Creatinine 1.59 H, Estim Creat Clear Calc 87.58, Est GFR (MDRD) Af Amer 64, Est GFR (MDRD) Non-Af 53 L, BUN/Creatinine Ratio 11.9, Glucose 106, Calcium 9.1, Phosphorus 4.3, Magnesium 2.5 Radiography Diagnostic Testing: Radiology Impression Echocardiogram 01/18/24 22:45 Interpretation Summary Normal LV size. The left ventricular ejection fraction is 55 %. Left ventricular systolic function is normal. Mild concentric left ventricular hypertrophy. Ordering Physician: Jasbir Woodward Referring Physician: Zen Lovett Performed By: Paula Pablo RVT, RDCS and Student Abdomen Ultrasound 01/19/24 02:56 IMPRESSION: Hepatic steatosis with hepatomegaly. No sonographic evidence of cholelithiasis. Electronically Signed: Christie Mancilla MD at 9:26 EDT Reading Location ID and State: [facility] / [place] Tel , Service support , D/C Instructions Discharge Diet: 8 Cup Fluid Restriction and 2000 mg Sodium Diet Discharge Activity: Return to Normal Activity Call your doctor if you observe: Fever of 101 or Higher, Shortness of breath, Fainting spells and Chest pain Meaningful Use Info Meaningful Use Meaningful Use Diagnoses (Choose all that apply): CHF CHF MELBA/ARB ordered at discharge?: No Reason MELBA/ARB not ordered?: Normal EF and Not indicated Documented LVEF (%): 55 Ischemic Stroke Statin Dosing Therapy Reference: STATIN DOSE THERAPY REFERENCE: * Patients > 75 years receive moderate or high dose statin therapy. * Patients 75 years or YOUNGER should receive HIGH intensity statin dose unless contraindicated. You will be required to document reason for non-treatment if statin daily dose does not meet guidelines. HIGH DOSE STATIN THERAPY DAILY Atorvastatin > than or = to 40 mg Rosuvastatin > than or = to 20 mg Amlodipine + Atorvastatin > than or = to 2.5/40 mg Ezetimibe + Simvastatin 10/80 mg Simvastatin 80mg Discharge Plan Admission Admit Date/Time: 01/18/24 21:18 Attending Provider: Kameron Medina Primary Care Provider: Brandon Lovett Consulting Providers: Jasbir Woodward Discharge Orders/Prescriptions Prescriptions: New furosemide 40 mg Tablet 40 mg PO DAILY Qty: 30 0RF levothyroxine 100 mcg Tablet 100 mcg PO DAILY@0600 Qty: 60 0RF potassium chloride 20 mEq Tablet,Er Particles/Crystals 20 meq PO DAILYCM Qty: 30 0RF amlodipine 10 mg Tablet 10 mg PO DAILY Qty: 90 0RF metoprolol succinate 50 mg tablet extended release 24 hr 50 mg PO DAILY Qty: 90 0RF Continued epinephrine [EpiPen 2-[place]] 0.3 mg/0.3 mL auto-injector 0.3 mg IM Q4H PRN (Reason: anaphylaxis) Qty: 2 0RF Patient Comments: no active Rx Discontinued amlodipine 10 mg tablet 10 mg PO DAILY Patient Comments: ran out this week Referrals / Follow Up: Rasheed Riley MD [Med Staff - Courtesy Staff] - Within 2 Weeks Brandon Lovett PA [Primary Care Provider] - Within 1 Week Disposition Disposition (needs filled in before D/C Order can be placed): Home, Self Care Charges/Coding Visit Charges Inpatient E&M: 95301 Disch Hosp >30min
--- NOTE | 2024-01-20 10:00 | CASEMGMT ---
VARUN MORTENSEN NOTE: Discharge order is in. VARUN MORTENSEN to room. Introduced self and role. Pt aware several scripts have been sent to [facility] retail pharmacy and he states he would like them delivered to room. Pharmacy made aware. Discussed Pt Link and he is agreeable to referral. Referral placed. Discussed importance of getting established w/a PCP. He voices understanding and states he still has the PCP list CM gave him and he plans to look into getting established w/a PCP. He states is still having leg pain, which he states came on all of a sudden this morning and states he did inform RNCarlotta, and received Tylenol but states it is not helping. VARUN MORTENSEN informed Carlotta of same who states she will f/u with pt about this. Pt denies having other discharge needs/concerns. Sera SALVADORN VARUN MORTENSEN
[2024-01-20] MEDS: Potassium Chloride Oral Tablet 20 MEQ 40 MEQ PO (10:30)
[2024-01-20] MEDS: Furosemide 100 MG/10 ML Vial IV (10:31)
--- NOTE | 2024-01-20 11:00 | PHA.DC_ITS ---
Pharmacy [facility] Service has performed discharge medication reconciliation and counseling for this patient. The patient's discharge medication list was reviewed for discrepancies and discrepancies were resolved. The patient was counseled on the following discharge medications and changes in medications for homegoing were reviewed. 1. SYNTHROID 2. LASIX 3. TOPROL XL 4. K-DUR The Reason for Use, instructions for use, and potential side effects were reviewed for all new medications. The patient's questions regarding all of their medications were answered. The patient was able to verbally demonstrate an understanding of their discharge medications. Medications at Discharge Home Medications epinephrine 0.3 mg/0.3 mL injection, auto-injector (EpiPen 2-[place]) 0.3 mg (0.3 mL) IM Q4H PRN anaphylaxis #2 ea 04/27/23 amlodipine 10 mg tablet 10 mg PO DAILY #90 tabs 01/20/24 furosemide 40 mg tablet 40 mg PO DAILY #30 tabs 01/20/24 levothyroxine 100 mcg tablet 100 mcg PO DAILY@0600 #60 tabs 01/20/24 metoprolol succinate 50 mg tablet,extended release 24 hr 50 mg PO DAILY #90 tabs 01/20/24 potassium chloride 20 mEq tablet,extended release(part/cryst) 20 meq PO DAILYCM #30 tabs 01/20/24
[2024-01-20 15:09] LABS: Thyroglobulin Antibody < 1.0 IU/mL (0.0-0.9); Thyroglobulin, Serum Qt. 4.5 ng/mL (1.4-29.2); Thyroid Peroxidase AB > 600 IU/mL (0-34)
== END 2024-01-20 15:04 | disposition home or self-care (01) | DRG 643 ==
LOC: ED 20:33 → PCU 21:33
PROVIDERS: Admitting Provider Hospitalist; Emergency Provider Emergency Medicine; PCP Physician Assistant; Visit Provider Internal Medicine
DX: E03.9 Hypothyroidism, unspecified (principal); I21.A1 Myocardial infarction type 2; I50.31 Acute diastolic (congestive) heart failure; N17.9 Acute kidney failure, unspecified; Z68.41 Body mass index [BMI] 40.0-44.9, adult; I16.1 Hypertensive emergency; D63.8 Anemia in other chronic diseases classified elsewhere; I11.0 Hypertensive heart disease with heart failure; E66.01 Morbid (severe) obesity due to excess calories; K76.0 Fatty (change of) liver, not elsewhere classified; F17.220 Nicotine dependence, chewing tobacco, uncomplicated; E87.6 Hypokalemia; Z91.148 Patient's other noncompliance with medication regimen for other reason; Z79.899 Other long term (current) drug therapy
CPT/HCPCS: 36415; 71046; 76705; 76770; 80048; 80053; 80061; 80076; 81001; 82533; 82570; 82607; 82728; 82746; 83036; 83540; 83550; 83735; 83880; 84100; 84156; 84432; 84439; 84443; 84484; 85025; 85027; 86376; 86800; 93005; 93306; 97802; 99283; Q9957; A4216; C8929; J1940